=== PATIENT | female | born 1970 | race Caucasian/White ===

== ENCOUNTER 2016-10-29 13:41 | Outpatient (CLI) | payer OTHER ==
[2016-10-29] MEDS ORDERED: GADOBUTROL 7.5 MMOL/7.5 ML VIAL IVP ONE (14:48)
--- NOTE | 2016-10-30 15:22 | MRI Report ---
EXAM: MR PELVIS WITH AND WITHOUT CONTRAST EXAM DATE: 10/29/2016 03:07 PM. CLINICAL HISTORY: ADBNORMAL UTERINE AND VAGINAL BLEEDING. History of tubal ligation COMPARISON: None. TECHNIQUE: Multiplanar breath-hold T1, T2, and DWI sequences obtained through the pelvis on an MR [facility] nner. Images obtained before and after administration of 7.5 mL Gadavist intravenous contrast. FINDINGS: Peritoneal cavity: Trace free fluid in the cul-de-sac. No adenopathy. No inflammatory change or mass. Bowel: The visualized portions of the small bowel, colon, and rectum appear normal. Bladder: The urinary bladder appears normal. Uterus: Retroverted and normal in size measuring 7.4 x 3 point to buy 4 cm. Normal morphology. No dev elopmental variant. Thickening of junctional zone is seen circumferentially with a few small cystic spaces within junctio nal zone. Junctional zone thickness in several areas measures greater than 8 mm. Endometrial stripe t hickness is normal measuring less than 6 mm at its widest point. Average thickness is approximately 5 mm. No focal mass. Subtle rounded areas of low T2 signal are seen separate from junctional zone in more peripheral myome trium consistent with small fibroids. 2 fibroids are seen measuring approximately 1.3 cm in diameter on the right, image 19 of series 801 and anterior 11 mm in diameter on image 20. Cervix/vagina: Small nabothian cysts. Otherwise unremarkable. Ovaries: Small/normal in size containing subcentimeter follicles. No adnexal mass suspicious for neop lasm. Bony Structures: No suspicious bony lesions. IMPRESSION: 1. Mild diffuse prominence of junctional zone containing small cystic spaces. Portions of junctional zone measure greater than 8 mm in thickness. Adenomyosis is a consideration for these findings in a p remenopausal patient with heavy vaginal bleeding. 2. Small intramural fibroids are seen. No submucosal fibroid. Overall uterine size is normal. 3. Endometrial stripe thickness is within normal limits for a premenopausal patient. No finding suspi cious for endometrial neoplasm/malignancy or polyp. 4. Examination otherwise as detailed above. [facility] Referring Provider Line: [phone] SITE ID: [id number]
== END 2016-10-29 13:42 | disposition home or self-care (01) ==
LOC: DI 13:41
PROVIDERS: ATTEND Nurse Practitioner Family
DX: D25.1 Intramural leiomyoma of uterus (principal)
CPT/HCPCS: 72197; A9585

== ENCOUNTER 2018-05-03 06:29 | Emergency (ER) | payer OTHER ==
[2018-05-03 06:46] LABS: BILIRUBIN,URINE NEGATIVE (NEGATIVE); GLUCOSE, URINE (UA) NEGATIVE (NEGATIVE); KETONES,URINE (UA) NEGATIVE (NEGATIVE); LEUKOCYTE ESTERASE, URINE NEGATIVE (NEGATIVE); NITRITE,URINE NEGATIVE (NEGATIVE); OCCULT BLOOD,URINE NEGATIVE (NEGATIVE); PROTEIN,URINE NEGATIVE (NEGATIVE); UROBILINOGEN,URINE 0.2 (NORMAL) E.U./dL (NORMAL)
[2018-05-03 06:48] LABS: CLARITY,URINE CLEAR (CLEAR)
[2018-05-03] MEDS ORDERED: KETOROLAC 30 MG/ML VIAL IVP STA (07:40)
[2018-05-03] MEDS ORDERED: SODIUM CHLORIDE 0.9% 1,000 ML IV ONE (07:40)
--- NOTE | 2018-05-03 07:43 | ED Physician Documentation ---
History of Present Illness - Stated complaint Stated Complaint: ABD/LOW BACK PX - Chief complaint Chief Complaint: Back Pain - Additonal information Additional information: hx from pt 47 y/o f suffers from chronic pain and is fairly immobile due to this to ED today with abd pain and mid to lower back pain R ? L pain radiates to hips but not down legs tingling to hips but no numbness or weakness no dysuria hematuria incontinence or retention no loss of bowel control or bloody stools no saddle anesthesia no fever no recent surgery or dental work, no IV IM meds or drugs Review of Systems Constitutional: denies: Fever, Chills Cardiac: denies: Chest pain / pressure Respiratory: denies: Dyspnea, Cough GI: reports: Abdominal Pain. denies: Nausea, Vomiting, Diarrhea, Bloody / black stool : reports: Control (tubal). 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 - Present Medications Home Medications: Ambulatory Orders Medication Instructions Recorded Confirmed Sertraline HCl [Zoloft] 75 mg PO DAILY 12/30/13 04/26/15 Azithromycin [Zithromax] 500 mg PO DAILY #6 tablet 05/03/18 Dicyclomine [Bentyl] 10 mg PO Q8H PRN #20 capsule 05/03/18 - Allergies Allergies/Adverse Reactions: Allergies Allergy/AdvReac Type Severity Reaction Status Date / Time gluten Allergy Unknown Unknown Verified 05/03/18 06:41 - Social History Does the pt smoke?: No Smoking Status: Never smoker Does the pt drink ETOH?: Yes Does the pt have substance abuse?: No Substance Use and Type: Marijuana - Immunizations Immunizations are current?: Yes - POLST Patient has POLST: No PD ED PE NORMAL - Vitals Vital signs reviewed: Yes - General General: Alert and oriented X 3 - Neck Neck: Supple, no meningeal sign - Cardiac Cardiac: RRR - Respiratory Respiratory: No respiratory distress, Clear bilaterally - Abdomen Abdomen: Other (+ BS soft mild distension diffusely TTP, kaya scar, no hernia) - Back Back: No spinal TTP (and no focal redness swelling or warmth) - Derm Derm: Normal color - Neuro Neuro: Alert and oriented X 3, No motor deficit, No sensory deficit, Other (hip flexion, knee ext, foot dorsi plantar grat toe ext 5/5, patellar DTR 2/4, no clonus, neg SLR, nl sensation, denies saddle anesthesia) Eye Opening: Spontaneous Motor: Obeys Commands Verbal: Oriented GCS Score: 15 Results - Vitals Vitals: Vital Signs - 24 hr 05/03/18 05/03/18 06:32 10:03 Temperature 36.3 C L 36.4 C L Heart Rate 79 71 Respiratory 17 18 Rate Blood Pressure 124/81 H 120/80 O2 Saturation 100 99 Oxygen O2 Source Room air - Labs Labs: Laboratory Tests 05/03/18 05/03/18 05/03/18 06:35 06:35 07:45 WBC 8.3 RBC 4.49 Hgb 11.8 L Hct 35.7 L MCV 79.5 L MCH 26.2 L MCHC 33.0 RDW 17.9 H Plt Count 237 MPV 7.2 L Neut # (Auto) 5.0 Lymph # (Auto) 2.1 [place] # (Auto) 0.5 Eos # (Auto) 0.5 Baso # (Auto) 0.1 Absolute Nucleated RBC 0.00 Nucleated RBC % 0.0 Sodium Potassium Chloride Carbon Dioxide Anion Gap BUN Creatinine Estimated GFR (MDRD) Glucose Calcium Total Bilirubin AST ALT Alkaline Phosphatase Total Protein Albumin Globulin Albumin/Globulin Ratio Lipase Urine Color YELLOW Urine Clarity CLEAR Urine pH 6.0 Ur Specific [place] <=1.005 <=1.005 Urine Protein NEGATIVE Urine Glucose (UA) NEGATIVE Urine Ketones NEGATIVE Urine Occult Blood NEGATIVE Urine Nitrite NEGATIVE Urine Bilirubin NEGATIVE Urine Urobilinogen 0.2 (NORMAL) Ur Leukocyte Esterase NEGATIVE Ur Microscopic Review NOT INDICATED Urine Culture Comments NOT INDICATED Urine HCG, Qual NEGATIVE 05/03/18 07:45 WBC RBC Hgb Hct MCV MCH MCHC RDW Plt Count MPV Neut # (Auto) Lymph # (Auto) [place] # (Auto) Eos # (Auto) Baso # (Auto) Absolute Nucleated RBC Nucleated RBC % Sodium 139 Potassium 3.8 Chloride 107 Carbon Dioxide 24 Anion Gap 8.0 BUN 11 Creatinine 0.6 Estimated GFR (MDRD) 106 Glucose 93 Calcium 8.9 Total Bilirubin 0.3 AST 24 ALT 22 Alkaline Phosphatase 89 Total Protein 8.2 Albumin 3.6 Globulin 4.6 H Albumin/Globulin Ratio 0.8 L Lipase 35 Urine Color Urine Clarity Urine pH Ur Specific [place] Urine Protein Urine Glucose (UA) Urine Ketones Urine Occult Blood Urine Nitrite Urine Bilirubin Urine Urobilinogen Ur Leukocyte Esterase Ur Microscopic Review Urine Culture Comments Urine HCG, Qual - Rads (name of study) CTAP Radiology: See rad report (per verbal d/w radiologist Dr Browning most c/w ileitis and not appendicitis, no renal abn) Departure - Departure Disposition: Home, Self Care Clinical Impression: Ileitis Condition: Good Follow-Up: MALOU MENSAH [Primary Care Provider] - Prescriptions: Azithromycin [Zithromax] 500 mg PO DAILY #6 tablet Dicyclomine [Bentyl] 10 mg PO Q8H PRN #20 capsule PRN Reason: Stomach cramps Comments: The blood work is all fine except mild anemia The urine did not show infection nor blood to suggest a kidney stone. The CT scan did not show a kidney stone or abscess or appendicitis or any spine problems - but it does look like you have inflammation (probably infection) of the part of bowel called the ileum. So I have prescribed antibiotics and a medication called bentyl to ease the pain. Please follow up with your PMD for a recheck Monday. If not improving you may need a GI referral. If worse over the weekend, come back to the ER Forms: Activity restrictions
[2018-05-03] MEDS ORDERED: IOVERSOL 320 100 ML VIAL IVP ONE ×2 (07:47→09:50)
[2018-05-03 08:00] LABS: BASOPHILS # (AUTO) 0.1 10^3/uL (0.0-0.1); BASOPHILS % (AUTO) 1.3 %; EOSINOPHILS # (AUTO) 0.5 10^3/uL (0.0-0.7); EOSINOPHILS % (AUTO) 6.5 %; HGB - HEMOGLOBIN 11.8 g/dL (12.0-16.0); LYMPHOCYTES # (AUTO) 2.1 10^3/uL (1.5-3.5); LYMPHOCYTES % (AUTO) 25.1 %; MEAN CORPUSCULAR HEMOGLOBIN 26.2 pg (27.0-31.0); MEAN CORPUSCULAR VOLUME 79.5 fL (81.0-99.0); MEAN PLATELET VOLUME 7.2 fL (7.9-10.8); MONOCYTES # (AUTO) 0.5 10^3/uL (0.0-1.0); MONOCYTES % (AUTO) 6.4 %; NEUTROPHILS % (AUTO) 60.7 %; PLT - PLATELET COUNT 237 10^3/uL (130-450); RED BLOOD COUNT 4.49 10^6/uL (4.20-5.40); RED CELL DISTRIBUTION WIDTH 17.9 % (12.0-15.0); WHITE BLOOD COUNT 8.3 x10^3/uL (4.8-10.8)
[2018-05-03 08:18] LABS: ALBUMIN 3.6 g/dL (3.2-5.5); ALBUMIN/GLOBULIN RATIO 0.8 (1.0-2.2); BILIRUBIN,TOTAL 0.3 mg/dL (0.2-1.0); CALCIUM 8.9 mg/dL (8.5-10.3); CREATININE 0.6 mg/dL (0.4-1.0); TOTAL PROTEIN 8.2 g/dL (6.7-8.2)
[2018-05-03 09:05] LABS: HCG UR QUAL NEGATIVE
--- NOTE | 2018-05-03 09:37 | CT Report ---
Reason: abd pain/distension and R flank pain Procedure Date: 05/03/2018 Accession Number: [id number] / [id number] Procedure: CT - Abdomen/Pelvis W/ CPT Code: FULL RESULT: EXAM: CT ABDOMEN AND PELVIS EXAM DATE: 05/03/2018 09:21 AM. CLINICAL HISTORY: Abdominal pain/distension and right flank pain. COMPARISONS: ABDOMEN/PELVIS W/ 04/26/2015 3:51 PM. TECHNIQUE: Routine helical CT imaging was performed through the abdomen and pelvis. IV contrast: OPTI 320 90 mL. Enteric contrast: No. Reconstructions: Coronal and sagittal. In accordance with CT protocol optimization, one or more of the following dose reduction techniques were utilized for this exam: automated exposure control, adjustment of mA and/or KV based on patient size, or use of iterative reconstructive technique. FINDINGS: Lung Bases: Unremarkable. Liver: Normal. No masses. Gallbladder/Bile Ducts: Status post cholecystectomy. Spleen: Normal. Pancreas: Normal. Adrenal Glands: Normal. Kidneys: Normal. No masses or hydronephrosis. Peritoneal Cavity/Bowel: There is subtle fat stranding in the region of the terminal ileum which contains a small amount of fluid and demonstrates a configuration questionably suggestive of postinflammatory changes without identifiable fatty infiltration of the bowel wall. No free fluid, free air or adenopathy. No masses visualized portions of the appendix are normal though portions of the appendix associated with the terminal ileum demonstrate similar mild surrounding inflammatory changes. Pelvic Organs: Normal. The bladder and visualized pelvic organs are within normal limits. Vasculature: No aneurysms or other significant abnormality. Bones: No significant abnormality. Other: None. IMPRESSION: Mild inflammatory changes in the terminal ileum. Question terminal ileitis. Appendicitis is felt less likely but cannot be excluded by imaging alone. No renal calculi or urinary obstruction. [facility]
[2018-05-03 10:03] VITALS: BP 120/80
== END 2018-05-03 10:33 | disposition home or self-care (01) ==
LOC: ED 06:29
DX: K52.9 Noninfective gastroenteritis and colitis, unspecified (principal); G89.29 Other chronic pain
CPT/HCPCS: 36415; 74177; 80053; 81003; 81025; 83690; 85025; 96361; 96374; 99283; Q9967; 81001; 87086

== ENCOUNTER 2018-06-17 12:40 | Emergency (ER) | payer OTHER ==
[2018-06-17 13:32] LABS: BILIRUBIN,URINE NEGATIVE (NEGATIVE); GLUCOSE, URINE (UA) NEGATIVE (NEGATIVE); KETONES,URINE (UA) NEGATIVE (NEGATIVE); LEUKOCYTE ESTERASE, URINE NEGATIVE (NEGATIVE); NITRITE,URINE NEGATIVE (NEGATIVE); OCCULT BLOOD,URINE NEGATIVE (NEGATIVE); PH,URINE 5.5 PH (5.0-7.5); PROTEIN,URINE NEGATIVE (NEGATIVE); UROBILINOGEN,URINE 0.2 (NORMAL) E.U./dL (NORMAL)
[2018-06-17 13:34] LABS: CLARITY,URINE CLEAR (CLEAR); HCG UR QUAL NEGATIVE
--- NOTE | 2018-06-17 14:08 | ED Physician Documentation ---
PD HPI ABD PAIN - Stated complaint Stated Complaint: STOMACH AND HIP PAIN - Chief complaint Chief Complaint: Abd Pain - History obtained from History obtained from: Patient, Family - History of Present Illness Timing - onset: Yesterday Timing - duration: Days (1) Timing - details: Gradual onset, Still present Quality: Sharp, Pain Location: RLQ, Suprapubic Improved by: Laying still Worsened by: Moving, Position, Palpation Associated symptoms: Nausea. No: Diarrhea, Constipation, Dysuria Similar symptoms before: Has not had sx before Recently seen: Not recently seen - Additional information Additional information: 48-year-old male began to have some pain in her lower abdomen yesterday afternoon and this progressively worsened throughout the day and by evening she had fairly severe pain. She required medication to go to sleep and she woke this morning with worse pain. The pain seems to have localized more to the right side but is present over the entire lower abdomen. She has had her gallbladder out and she has had a prior diagnosis of ileitis approximately 5 weeks ago Review of Systems Constitutional: denies: Fever Eyes: denies: Decreased vision Ears: denies: Loss of hearing, Ear pain Nose: denies: Rhinorrhea / runny nose, Congestion Throat: denies: Sore throat Cardiac: denies: Chest pain / pressure, Palpitations Respiratory: denies: Dyspnea, Cough GI: reports: Abdominal Pain, Nausea. 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 - Present Medications Home Medications: Ambulatory Orders Medication Instructions Recorded Confirmed Sertraline HCl [Zoloft] 75 mg PO DAILY 12/30/13 06/17/18 - Allergies Allergies/Adverse Reactions: Allergies Allergy/AdvReac Type Severity Reaction Status Date / Time gluten Allergy Unknown Unknown Verified 06/17/18 12:47 - Social History Does the pt smoke?: No Smoking Status: Never smoker Does the pt drink ETOH?: Yes Does the pt have substance abuse?: No - Immunizations Immunizations are current?: Yes - POLST Patient has POLST: No PD ED PE NORMAL - Vitals Vital signs reviewed: Yes (normal ) - General General: Alert and oriented X 3, No acute distress, Well developed/nourished - HEENT HEENT: Atraumatic, PERRL, EOMI - Neck Neck: Supple, no meningeal sign - Cardiac Cardiac: RRR, No murmur - Respiratory Respiratory: No respiratory distress, Clear bilaterally - Abdomen Abdomen: Soft, Other (marked lower abdomen tenderness that locallizes to the right lower quadrant. There is guarding and referred tenderness. ) - Back Back: No CVA TTP, No spinal TTP - Derm Derm: Normal color, Warm and dry, No rash - Neuro Neuro: Alert and oriented X 3, assignment editor 2-12 intact, No motor deficit, No sensory deficit, Normal speech Eye Opening: Spontaneous Motor: Obeys Commands Verbal: Oriented GCS Score: 15 - Psych Psych: Normal mood, Normal affect Results - Vitals Vitals: Vital Signs - 24 hr 06/17/18 06/17/18 06/17/18 12:45 14:25 16:00 Temperature 37.0 C Heart Rate 88 72 77 Respiratory 17 12 14 Rate Blood Pressure 120/79 100/67 102/65 O2 Saturation 99 96 94 Oxygen O2 Source Room air - Labs Labs: Laboratory Tests 06/17/18 06/17/18 06/17/18 13:00 13:20 13:20 WBC 9.7 RBC 4.73 Hgb 12.5 Hct 38.2 MCV 80.7 L MCH 26.5 L MCHC 32.9 RDW 17.3 H Plt Count 249 MPV 7.5 L Neut # (Auto) 6.1 Lymph # (Auto) 2.2 [place] # (Auto) 0.5 Eos # (Auto) 0.8 H Baso # (Auto) 0.1 Absolute Nucleated RBC 0.00 Nucleated RBC % 0.0 Sodium 139 Potassium 3.4 L Chloride 102 Carbon Dioxide 23 Anion Gap 14.0 H BUN 12 Creatinine 0.7 Estimated GFR (MDRD) 89 Glucose 93 Calcium 8.8 Total Bilirubin 0.5 AST 25 ALT 17 Alkaline Phosphatase 82 Total Protein 8.4 H Albumin 3.7 Globulin 4.7 H Albumin/Globulin Ratio 0.8 L Lipase 33 Urine Color YELLOW Urine Clarity CLEAR Urine pH 5.5 Ur Specific Gap 1.010 Urine Protein NEGATIVE Urine Glucose (UA) NEGATIVE Urine Ketones NEGATIVE Urine Occult Blood NEGATIVE Urine Nitrite NEGATIVE Urine Bilirubin NEGATIVE Urine Urobilinogen 0.2 (NORMAL) Ur Leukocyte Esterase NEGATIVE Ur Microscopic Review NOT INDICATED Urine Culture Comments NOT INDICATED Urine HCG, Qual NEGATIVE - Rads (name of study) CT abd/pel with Radiology: Prelim report reviewed (Impression 1. No acute inflammatory or obstructive process is identified to explain abdominal pain. 2 Large stool volume throughout the colon, which could be a cause of pain.), EMP read indepedently, See rad report PD MEDICAL DECISION MAKING - ED course Complexity details: reviewed old records, reviewed results, re-evaluated patient, considered differential, d/w patient, d/w family Departure - Departure Disposition: 01 Home, Self Care Clinical Impression: Constipation Qualifiers: Constipation type: unspecified constipation type Qualified Code(s): K59.00 - Constipation, unspecified Condition: Stable Instructions: ED Constipation Follow-Up: MALOU MENSAH [Primary Care Provider] -
[2018-06-17 14:11] LABS: BASOPHILS # (AUTO) 0.1 10^3/uL (0.0-0.1); BASOPHILS % (AUTO) 0.9 %; EOSINOPHILS # (AUTO) 0.8 10^3/uL (0.0-0.7); EOSINOPHILS % (AUTO) 8.3 %; HGB - HEMOGLOBIN 12.5 g/dL (12.0-16.0); LYMPHOCYTES # (AUTO) 2.2 10^3/uL (1.5-3.5); MEAN CORPUSCULAR HEMOGLOBIN 26.5 pg (27.0-31.0); MEAN CORPUSCULAR HGB CONC 32.9 g/dL (32.0-36.0); MEAN CORPUSCULAR VOLUME 80.7 fL (81.0-99.0); MEAN PLATELET VOLUME 7.5 fL (7.9-10.8); MONOCYTES # (AUTO) 0.5 10^3/uL (0.0-1.0); MONOCYTES % (AUTO) 4.9 %; NEUTROPHILS # (AUTO) 6.1 10^3/uL (1.5-6.6); NEUTROPHILS % (AUTO) 62.9 %; PLT - PLATELET COUNT 249 10^3/uL (130-450); RED BLOOD COUNT 4.73 10^6/uL (4.20-5.40); RED CELL DISTRIBUTION WIDTH 17.3 % (12.0-15.0); WHITE BLOOD COUNT 9.7 x10^3/uL (4.8-10.8)
[2018-06-17 14:22] LABS: ALBUMIN 3.7 g/dL (3.2-5.5); ALBUMIN/GLOBULIN RATIO 0.8 (1.0-2.2); BILIRUBIN,TOTAL 0.5 mg/dL (0.2-1.0); CALCIUM 8.8 mg/dL (8.5-10.3); CREATININE 0.7 mg/dL (0.4-1.0); TOTAL PROTEIN 8.4 g/dL (6.7-8.2)
[2018-06-17] MEDS ORDERED: IOVERSOL 320 100 ML VIAL IVP ONE ×2 (14:46→14:56)
[2018-06-17] MEDS ORDERED: KETOROLAC 30 MG/ML VIAL IVP STA (15:34)
--- NOTE | 2018-06-17 15:45 | CT Report ---
Reason: abd pain worse on RLQ Procedure Date: 06/17/2018 Accession Number: [id number] / [id number] Procedure: CT - Abdomen/Pelvis W CPT Code: FULL RESULT: EXAM: CT ABDOMEN AND PELVIS EXAM DATE: 06/17/2018 02:54 PM. CLINICAL HISTORY: Abdominal pain, worst in right lower quadrant COMPARISONS: ABDOMEN/PELVIS W/ 05/03/2018 9:05 AM. TECHNIQUE: Routine helical CT imaging was performed through the abdomen and pelvis. IV contrast: 100 mL Optiray 320. Enteric contrast: None. Reconstructions: Coronal and sagittal. In accordance with CT protocol optimization, one or more of the following dose reduction techniques were utilized for this exam: automated exposure control, adjustment of mA and/or KV based on patient size, or use of iterative reconstructive technique. FINDINGS: Lung Bases: Clear. Liver: Normal. No focal hepatic lesion. Gallbladder/Bile Ducts: Post cholecystectomy. No biliary ductal dilatation. Spleen: Normal. Pancreas: Normal. Adrenal Glands: Normal. Kidneys and Ureters: Normal. No stones, hydronephrosis, or hydroureter. Peritoneal Cavity/Bowel: Small volume intrapelvic free fluid, likely physiologic if the patient is premenopausal. Large stool volume throughout the colon. No evidence for bowel obstruction or acute inflammatory process. The appendix is normal. No pneumoperitoneum or adenopathy. Pelvic Organs: The bladder, uterus, and ovaries are within normal limits. Vasculature: Unremarkable. Bones: Minimal right convex curvature centered at L2-L3. Mild degenerative changes within the spine. No acute bony abnormality. Other: None. IMPRESSION: 1. No acute inflammatory or obstructive process identified to explain abdominal pain. 2. Large stool volume throughout the colon, which could be a cause of pain. [facility]
[2018-06-17 18:13] VITALS: BP 118/81
== END 2018-06-17 18:15 | disposition home or self-care (01) ==
LOC: ED 12:40
DX: K59.00 Constipation, unspecified (principal)
CPT/HCPCS: 36415; 74177; 80053; 81003; 81025; 83690; 85025; 99282; 99284; Q9967; 81001; 87086

== ENCOUNTER 2018-10-16 16:55 | Observation (INO) | payer OTHER ==
[2018-10-16 17:36] LABS: BASOPHILS # (AUTO) 0.1 10^3/uL (0.0-0.1); BASOPHILS % (AUTO) 0.7 %; EOSINOPHILS # (AUTO) 0.9 10^3/uL (0.0-0.7); EOSINOPHILS % (AUTO) 7.3 %; HGB - HEMOGLOBIN 12.9 g/dL (12.0-16.0); LYMPHOCYTES # (AUTO) 2.5 10^3/uL (1.5-3.5); MEAN CORPUSCULAR HEMOGLOBIN 26.5 pg (27.0-31.0); MEAN CORPUSCULAR HGB CONC 30.4 g/dL (32.0-36.0); MEAN CORPUSCULAR VOLUME 87.3 fL (81.0-99.0); MEAN PLATELET VOLUME 9.2 fL (7.9-10.8); MONOCYTES # (AUTO) 0.7 10^3/uL (0.0-1.0); MONOCYTES % (AUTO) 5.8 %; NEUTROPHILS % (AUTO) 65.4 %; PLT - PLATELET COUNT 268 10^3/uL (130-450); RED BLOOD COUNT 4.87 10^6/uL (4.20-5.40); RED CELL DISTRIBUTION WIDTH 15.9 % (12.0-15.0); WHITE BLOOD COUNT 12.3 x10^3/uL (4.8-10.8)
[2018-10-16 17:52] LABS: ALBUMIN 4.2 g/dL (3.2-5.5); ALBUMIN/GLOBULIN RATIO 0.9 (1.0-2.2); BILIRUBIN,TOTAL 0.6 mg/dL (0.2-1.0); CALCIUM 9.4 mg/dL (8.5-10.3); CREATININE 0.9 mg/dL (0.4-1.0); TOTAL PROTEIN 9.1 g/dL (6.7-8.2)
--- NOTE | 2018-10-16 18:10 | ED Physician Documentation ---
PD HPI HEENT - Stated complaint Stated Complaint: DIZZY - Chief complaint Chief Complaint: Neuro - History obtained from History obtained from: Patient - History of Present Illness Timing - onset: Today (10 am) Timing - duration: Hours Timing - details: Abrupt onset, Still present Location: Other (onset of vertigo, trouble speaking, and feeling off balance, abruptly while standing in kitchen talking with friend.) Worsens: Position Associated symptoms: Other (ongoing dental pains; no acute swelling/drainage.). No: Fever, Congestion, Facial swelling, Headache Similar symptoms before: Has not had sx before Recently seen: Not recently seen Review of Systems Constitutional: denies: Fever, Chills Eyes: reports: Decreased vision (blurred vision left eye) Nose: denies: Rhinorrhea / runny nose, Congestion Throat: reports: Dental pain / toothache. denies: Sore throat Respiratory: denies: Cough GI: denies: Abdominal Pain, Nausea, Vomiting, Diarrhea Skin: denies: Rash, Lesions Neurologic: reports: Generalized weakness. 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 Living Arrangement: reports: At home - Social History Does the pt smoke?: No Smoking Status: Never smoker Does the pt drink ETOH?: Yes Does the pt have substance abuse?: No - Family History Family history: reports: Non contributory - Immunizations Immunizations are current?: Yes - POLST Patient has POLST: No PD ED PE NORMAL - Vitals Vital signs reviewed: Yes - General General: Alert and oriented X 3, No acute distress, Well developed/nourished - HEENT HEENT: Atraumatic, PERRL, EOMI, Pharynx benign. No: Dentition benign (poor dentition and some left upper dental tenderness but no gum swelling nor fluctuance. ) - Neck Neck: Supple, no meningeal sign, No adenopathy, No bruit - Cardiac Cardiac: RRR, No murmur - Respiratory Respiratory: Clear bilaterally - Abdomen Abdomen: Soft, Non tender - Back Back: No CVA TTP - Derm Derm: Normal color, Warm and dry - Extremities Extremities: No deformity, No tenderness to palpate - Neuro Neuro: Alert and oriented X 3, nuclear medicine chief technologist 2-12 intact, No motor deficit, No sensory deficit. No: Normal speech (some slight hesitancy for speech/sentences. No slurring. ) Results - Vitals Vitals: Vital Signs - 24 hr 10/16/18 10/16/18 10/16/18 16:58 19:09 20:15 Temperature 36.9 C Heart Rate 96 79 77 Respiratory 20 15 21 Rate Blood Pressure 127/88 H 122/80 109/69 O2 Saturation 97 99 96 Oxygen O2 Source Room air - Labs Labs: Laboratory Tests 10/16/18 10/16/18 10/16/18 17:31 17:31 17:31 WBC 12.3 H RBC 4.87 Hgb 12.9 Hct 42.5 MCV 87.3 MCH 26.5 L MCHC 30.4 L RDW 15.9 H Plt Count 268 MPV 9.2 Neut # (Auto) 8.0 H Lymph # (Auto) 2.5 [place] # (Auto) 0.7 Eos # (Auto) 0.9 H Baso # (Auto) 0.1 Absolute Nucleated RBC 0.00 Nucleated RBC % 0.0 ESR Sodium 138 Potassium 3.6 Chloride 101 Carbon Dioxide 24 Anion Gap 13.0 BUN 12 Creatinine 0.9 Estimated GFR (MDRD) 66 L Glucose 98 Calcium 9.4 Magnesium Total Bilirubin 0.6 AST 24 ALT 24 Alkaline Phosphatase 90 Troponin I < 0.04 Total Protein 9.1 H Albumin 4.2 Globulin 4.9 H Albumin/Globulin Ratio 0.9 L Lipase 31 10/16/18 10/16/18 17:31 17:31 WBC RBC Hgb Hct MCV MCH MCHC RDW Plt Count MPV Neut # (Auto) Lymph # (Auto) [place] # (Auto) Eos # (Auto) Baso # (Auto) Absolute Nucleated RBC Nucleated RBC % ESR 13 Sodium Potassium Chloride Carbon Dioxide Anion Gap BUN Creatinine Estimated GFR (MDRD) Glucose Calcium Magnesium 2.3 Total Bilirubin AST ALT Alkaline Phosphatase Troponin I Total Protein Albumin Globulin Albumin/Globulin Ratio Lipase - Rads (name of study) head CT Radiology: Prelim report reviewed, Discussed with rads (no acute process), See rad report head and neck angio Radiology: Prelim report reviewed, Discussed with rads (no acute significant stenoses. ), See rad report PD MEDICAL DECISION MAKING - ED course Complexity details: reviewed results (CT and CT-A without acute changes. ), considered differential (Her symptoms are concerning for potential posterior circulation and infarct with the left visual change, vertigo and ataxia. Also with the trouble speaking. The CT and CTA did not show any acute process. However these would not be completely definitive for a posterior circulation infarct and the MRI would be indicated. This would also help show other potential possibilities such as cavernous sinus thrombosis or MS. She had been having a dental tenderness but no obvious abscess or infection to it. She has not had any injuries so it does not sound concussive. The vertigo could be from inner ear problem but that would not explain the difficulty speaking or the visual change.), d/w patient Departure - Departure Disposition: ED Place in Observation Clinical Impression: Ataxia, Vertigo, Vision changes Condition: Stable Record reviewed to determine appropriate education?: Yes Discharge Date/Time: 10/16/18 21:28 NIHSS - Level of Consciousness Level of consciousness: (0) Alert, Keenly responsive LOC Questions: (0) Answers both Q's correct LOC Commands: (0) Performs both correctly - Gaze Best Gaze: (0) Normal - Visual Visual: (2) Complete Hemianopia (left lateral visual field) - Facial Palsy Facial Palsy: (0) Normal, symmetrical movement - Motor Arms (both separate) Motor Arm (right): (0) No drift Motor Arm (left): (0) No drift - Motor Legs (both separate) Motor Leg (right): (0) No drift Motor Leg (left): (0) No drift - Limb Ataxia Limb Ataxia: (1) Present in 1 limb - Sensory Sensory: (0) Normal - Best Language Best Language: (1) [id number] (some mild trouble with word search and hesitant sentence structure) - Dysarthria Dysarthria: (0) Normal - Extinction and Inattention (formally neg Extinction and inattention: (0) No abnormality - Total Score/Results Total Score/Result: 4
[2018-10-16] MEDS ORDERED: SODIUM CHLORIDE 0.9% 1,000 ML IV ONE (18:36)
[2018-10-16] MEDS ORDERED: MECLIZINE 12.5 MG TABLET PO STA (18:36)
[2018-10-16] MEDS ORDERED: ONDANSETRON 4 MG/2 ML VIAL IVP STA (18:36)
[2018-10-16] MEDS ORDERED: IOVERSOL 320 100 ML VIAL IVP ONE ×3 (18:48→20:58)
[2018-10-16] MEDS ORDERED: KETOROLAC 15 MG/ML VIAL IVP STA (19:13)
--- NOTE | 2018-10-16 19:23 | CT Report ---
Reason: ataxia, left visual change, vertigo Procedure Date: 10/16/2018 Accession Number: [id number] / [id number] Procedure: CT - Head W/O Stroke Protocol CPT Code: FULL RESULT: EXAM: CT HEAD EXAM DATE: 10/16/2018 07:13 PM. CLINICAL HISTORY: 48-year-old presenting with ataxia, vertigo, and left visual changes. Evaluate for intracranial pathology. COMPARISON: HEAD ANGIO 10/16/2018 7:01 PM. TECHNIQUE: Multiaxial CT images were obtained from the foramen magnum to the vertex. Reformats: Sagittal and coronal. IV contrast: None. In accordance with CT protocol optimization, one or more of the following dose reduction techniques were utilized for this exam: automated exposure control, adjustment of mA and/or KV based on patient size, or use of iterative reconstructive technique. FINDINGS: Parenchyma: No intraparenchymal hemorrhage. No evidence of mass, midline shift, or CT findings of acute infarction. Patricia-white differentiation is distinct. Extraaxial Spaces: Normal for age. No subdural or epidural collections identified. Ventricles: Normal in size and position. Sinuses and Orbits: Imaged paranasal sinuses, orbits, and mastoids show no significant abnormality. Bones: No evidence of fracture or calvarial defect. Other: None. IMPRESSION: 1. No definite acute infarct seen. If there is clinical concern for acute stroke or if symptoms persist, an MR brain can be considered to evaluate for small or subtle pathology. ASPECTS: 10 right/10 left 2. No acute intracranial hemorrhage, mass, hydrocephalus or midline shift. RADIA The critical test notification system was initiated by Dr. Mukesh Rodriguez at 07:22 PM on 10/16/2018. The above critical test findings were discussed with Timmy Sampson by Dr. Mukesh Rodriguez at 07:23 PM on 10/16/2018.
--- NOTE | 2018-10-16 20:01 | CT Report ---
Reason: visual change, dizzy, ataxia Procedure Date: 10/16/2018 Accession Number: [id number] / [id number] Procedure: CT - ANGIO HEAD W CPT Code: FULL RESULT: EXAM: CT ANGIOGRAM HEAD AND NECK. CT SCAN HEAD WITH CONTRAST. EXAM DATE: 10/16/2018 07:13 PM. CLINICAL HISTORY: 48-year-old presenting with dizziness, left visual changes, and ataxia. Evaluate for intracranial pathology. COMPARISON: HEAD ANGIO 10/16/2018 7:01 PM. TECHNIQUE: Routine axial helical CTA imaging was performed from the aortic arch through the [place]. Routine axial CT imaging of the head was performed following contrast administration. Reconstructions: Routine multiplanar 3D MIP reconstructions. IV contrast: 100 cc Optiray 320. NASCET Criteria are used for stenosis measurements. In accordance with CT protocol optimization, one or more of the following dose reduction techniques were utilized for this exam: automated exposure control, adjustment of mA and/or KV based on patient size, or use of iterative reconstructive technique. FINDINGS: CT SCAN HEAD: Parenchyma: No intraparenchymal hemorrhage. No evidence of mass, midline shift, or CT findings of acute infarction. Patricia-white differentiation is distinct. No abnormal postcontrast enhancement. Extra-axial Spaces: Normal for age. No subdural or epidural collections identified. Ventricles: Normal in size and position. Sinuses and Orbits: Imaged paranasal sinuses, orbits, and mastoids show no significant abnormality. Bones: No evidence of fracture or calvarial defect. CT ANGIOGRAM EXTRACRANIAL CIRCULATION: The visualized arch is unremarkable. Great vessels are patent and unremarkable. Right Carotid: The common carotid, internal carotid, and external carotid arteries are widely patent. No dissection, significant atherosclerotic plaque, or calcification identified. Left Carotid: The common carotid, internal carotid, and external carotid arteries are widely patent. No dissection, significant atherosclerotic plaque, or calcification identified. Vertebrals: The vertebrobasilar system shows no stenosis, dissection, aneurysm, or significant atherosclerotic disease. CT ANGIOGRAM INTRACRANIAL CIRCULATION: Normal. No stenoses or aneurysms of the visualized vessels. The dural venous sinuses are patent. Other: The visualized bones, soft tissues, and lung apices are unremarkable. IMPRESSION: CT SCAN HEAD: 1. No definite acute infarct seen. If there is clinical concern for acute stroke or symptoms persist an MR brain could be considered to evaluate for small or subtle pathology. ASPECTS: 10 right/10 left. 2. No acute intracranial hemorrhage, mass, hydrocephalus, or midline shift. No abnormal postcontrast enhancement. CT ANGIOGRAM NECK: 1. Normal CTA of the extracranial circulation. No significant atherosclerotic change or stenosis. No dissection. CT ANGIOGRAM HEAD: 1. No large vessel occlusion. 2. No aneurysm. No significant stenosis. RADIA The call report notification system was initiated by Dr. Mukesh Rodriguez at 08:00 PM on 10/16/2018. ADDENDUM: 10/16/18 20:19 The above call report findings were discussed with Timmy Sampson by Dr. Mukesh Rodriguez at 08:19 PM on 10/16/2018.
--- NOTE | 2018-10-16 20:01 | CT Report ---
Reason: dizzy, left visual change, ataxia Procedure Date: 10/16/2018 Accession Number: [id number] / [id number] Procedure: CT - ANGIO NECK W/WO CPT Code: FULL RESULT: EXAM: CT ANGIOGRAM HEAD AND NECK. CT SCAN HEAD WITH CONTRAST. EXAM DATE: 10/16/2018 07:13 PM. CLINICAL HISTORY: 48-year-old presenting with dizziness, left visual changes, and ataxia. Evaluate for intracranial pathology. COMPARISON: HEAD ANGIO 10/16/2018 7:01 PM. TECHNIQUE: Routine axial helical CTA imaging was performed from the aortic arch through the [place] [employer] [place]. Routine axial CT imaging of the head was performed following contrast administration. Reconstructions: Routine multiplanar 3D MIP reconstructions. IV contrast: 100 cc Optiray 320. NASCET Criteria are used for stenosis measurements. In accordance with CT protocol optimization, one or more of the following dose reduction techniques were utilized for this exam: automated exposure control, adjustment of mA and/or KV based on patient size, or use of iterative reconstructive technique. FINDINGS: CT SCAN HEAD: Parenchyma: No intraparenchymal hemorrhage. No evidence of mass, midline shift, or CT findings of acute infarction. Patricia-white differentiation is distinct. No abnormal postcontrast enhancement. Extra-axial Spaces: Normal for age. No subdural or epidural collections identified. Ventricles: Normal in size and position. Sinuses and Orbits: Imaged paranasal sinuses, orbits, and mastoids show no significant abnormality. Bones: No evidence of fracture or calvarial defect. CT ANGIOGRAM EXTRACRANIAL CIRCULATION: The visualized arch is unremarkable. Great vessels are patent and unremarkable. Right Carotid: The common carotid, internal carotid, and external carotid arteries are widely patent. No dissection, significant atherosclerotic plaque, or calcification identified. Left Carotid: The common carotid, internal carotid, and external carotid arteries are widely patent. No dissection, significant atherosclerotic plaque, or calcification identified. Vertebrals: The vertebrobasilar system shows no stenosis, dissection, aneurysm, or significant atherosclerotic disease. CT ANGIOGRAM INTRACRANIAL CIRCULATION: Normal. No stenoses or aneurysms of the visualized vessels. The dural venous sinuses are patent. Other: The visualized bones, soft tissues, and lung apices are unremarkable. IMPRESSION: CT SCAN HEAD: 1. No definite acute infarct seen. If there is clinical concern for acute stroke or symptoms persist an MR brain could be considered to evaluate for small or subtle pathology. ASPECTS: 10 right/10 left. 2. No acute intracranial hemorrhage, mass, hydrocephalus, or midline shift. No abnormal postcontrast enhancement. CT ANGIOGRAM NECK: 1. Normal CTA of the extracranial circulation. No significant atherosclerotic change or stenosis. No dissection. CT ANGIOGRAM HEAD: 1. No large vessel occlusion. 2. No aneurysm. No significant stenosis. RADIA The call report notification system was initiated by Dr. Mukesh Rodriguez at 08:00 PM on 10/16/2018. ADDENDUM: 10/16/18 20:19 The above call report findings were discussed with Timmy Sampson by Dr. Mukesh Rodriguez at 08:19 PM on 10/16/2018.
[2018-10-16] MEDS ORDERED: SODIUM CHLORIDE FLUSH 0.9% 10 ML SYRINGE IVP PRN (20:56)
[2018-10-16 21:11] LABS: BILIRUBIN,URINE NEGATIVE (NEGATIVE); GLUCOSE, URINE (UA) NEGATIVE (NEGATIVE); KETONES,URINE (UA) NEGATIVE (NEGATIVE); LEUKOCYTE ESTERASE, URINE NEGATIVE (NEGATIVE); NITRITE,URINE NEGATIVE (NEGATIVE); OCCULT BLOOD,URINE NEGATIVE (NEGATIVE); PH,URINE 6.5 PH (5.0-7.5); PROTEIN,URINE NEGATIVE (NEGATIVE); UROBILINOGEN,URINE 0.2 (NORMAL) E.U./dL (NORMAL)
[2018-10-16 21:13] LABS: CLARITY,URINE CLEAR (CLEAR)
[2018-10-16] MEDS: SODIUM CHLORIDE 0.9% 1,000 ML IV SCH (22:32)
--- NOTE | 2018-10-16 23:14 | HISTORY & PHYSICAL EXAMINATION ---
Chief Complaint - Chief Complaint Chief Complaint: dizziness, confusion, left eye blurriness, speech difficulty History of Present Illness - Admitted From Ad[facility] From:: [facility] - History Obtained From Records Reviewed: yes History obtained from: patient and spouse Exam Limitations: speech and memory difficulties - History of Present Illness HPI Comment/Other: Patient seen on 10/16/18 at 2200pm Patient is a 48 y/o female who presented to the ED with a range of neurologic complains which included confusion, dizziness, feeling off balance, difficulty speaking, blurry peripheral vision in the left eyes and ? left facial droop.. She has some baseline problems with her speech and dizziness. However, the symptoms were much more amplified. Her vision changes were also new. Onset of her symptoms was on 10/15/18 around 8pm. She came to the ED around 5pm on 10/16/18 because the symptoms persisted. At the time of this exam, she complains of still feeling dizzy and having problems with her speech She denied chest pain, BETH, abd pain, nausea, vomiting, fever or chills. Work up in the ED included CT head w/o contrast and CT Angio Head and Neck which were unremarkable. However as a result of the patient's presentation, she is being admitted for further work up. 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 (and a house mate) Social History Notes: Patient denies tobacco use. Ocassionally drinks and uses marijuana - POLST Patient has POLST: No POLST Status: Full Code Meds/Allgy - Home Medications Home Medications: Ambulatory Orders Medication Instructions Recorded Confirmed Sertraline HCl [Zoloft] 75 mg PO DAILY 12/30/13 06/17/18 - Allergies Allergies/Adverse Reactions: Allergies Allergy/AdvReac Type Severity Reaction Status Date / Time gluten Allergy Unknown Unknown Verified 10/16/18 17:00 Review of Systems - Constitutional Constitutional: denies: Fatigue, Chills, Weakness - Eyes Eyes: reports: Blurred vision - Ears, Nose & Throat Ears, Nose & Throat: denies: Vertigo, Nasal discharge, Sore throat, Hoarseness - Cardiovascular Cariovascular: reports: Lightheadedness. denies: Chest pain, Edema, Syncope, Exertional dyspnea, Decr. exercise tolerance - Respiratory Respiratory: denies: Cough, Orthopnea, SOB at rest - Gastrointestinal Gastrointestinal: reports: Reflux/heartburn. denies: Abdominal pain, Abdominal distention, Constipation, Nausea, Vomiting, Coffee grounds emesis - Genitourinary Genitourinary: denies: Dysuria, Frequency, Urgency, Hematuria - Musculoskeletal Musculoskeletal: reports: Back pain (chronic). denies: Muscle pain, Muscle aches, Stiffness - Integumentary Integumentary: denies: Rash, Pruritis, Lesions, Dryness - Neurological Neurological: reports: Focal weakness (? left sided), Dizziness, Memory problems, Abnormal gait, Slurred speech - Psychiatric Psychiatric: reports: Depression, Anxiety - Endocrine Endocrine: denies: Polyuria, Polydypsia - Hematologic/Lymphatic Hematologic/Lymphatic: denies: Anemia, Bruising, Petechiae Prior Level of Functionality: Independent of activities of daily living. Exam - Vital Signs Vital Signs: Vital Signs x48h Temp Pulse Pulse Resp BP BP Pulse Ox 10/16/18 21:29 36.7 C 77 18 124/81 H 98 10/16/18 21:06 82 23 131/79 H 98 10/16/18 20:15 77 21 109/69 96 10/16/18 19:09 79 15 122/80 99 10/16/18 16:58 36.9 C 96 20 127/88 H 97 - Physical Exam General Appearance: positive: No acute distress, Alert Eyes Bilateral: positive: Normal inspection, PERRL, EOMI. negative: Conjunctivae nml ENT: positive: ENT inspection nml, No signs of dehydration Neck: positive: Nml inspection, No JVD, Trachea midline Respiratory: positive: Chest non-tender, No respiratory distress, Breath sounds nml. negative: Wheezes, Rales, Rhonchi Cardiovascular: positive: Regular rate & rhythm, No murmur Abdomen: positive: Non-tender, No organomegaly, Nml bowel sounds, No distention. negative: Guarding, Rebound Back: positive: Nml inspection Skin: positive: Color nml, No rash, Warm, Dry. negative: Diaphoresis, Pallor Extremities: positive: Non-tender, Full ROM, Nml appearance, No pedal edema Neurologic/Psychiatric: positive: Oriented x3, CN's nml (2-12), Motor nml, Sensation nml, Mood/affect nml. negative: Facial droop, Slurred/abnml speech, Depressed mood/affect Conclusion/Plan - Problem List (1) Vision changes Conclusion/Plan: ?TIA vs CVA CT unremarkable. MRI brain, 2D echo, lipid panel HgA1C pending (2) Depression Conclusion/Plan: On sertraline (3) GERD (gastroesophageal reflux disease) Conclusion/Plan: Famotidine ordered - Lab Results Fish Bones: 10/16/18 17:31 10/16/18 17:31 - Diagnostic Imaging Results Diagnostic Imaging Results: positive: Final report reviewed - EKG Results EKG Interpreted Independently: Yes EKG Comparison: Old EKG unavailable Core Measures - Anticipated LOS I expect patient to be DC'd or transferred within 96 hours.: Yes - DVT/VTE - Prophylaxis VTE/DVT Device ordered at admit?: Yes
[2018-10-16] MEDS: SODIUM CHLORIDE FLUSH 0.9% 10 ML SYRINGE IVP SCH (23:40)
[2018-10-16] MEDS ORDERED: traZODone 50 MG TABLET PO SCH (23:54)
[2018-10-17 05:19] LABS: BASOPHILS # (AUTO) 0.1 10^3/uL (0.0-0.1); BASOPHILS % (AUTO) 0.8 %; EOSINOPHILS # (AUTO) 0.8 10^3/uL (0.0-0.7); EOSINOPHILS % (AUTO) 7.5 %; HGB - HEMOGLOBIN 10.6 g/dL (12.0-16.0); LYMPHOCYTES # (AUTO) 2.5 10^3/uL (1.5-3.5); LYMPHOCYTES % (AUTO) 24.4 %; MEAN CORPUSCULAR HEMOGLOBIN 26.7 pg (27.0-31.0); MEAN CORPUSCULAR HGB CONC 30.5 g/dL (32.0-36.0); MEAN CORPUSCULAR VOLUME 87.7 fL (81.0-99.0); MEAN PLATELET VOLUME 9.4 fL (7.9-10.8); MONOCYTES # (AUTO) 0.7 10^3/uL (0.0-1.0); MONOCYTES % (AUTO) 6.3 %; NEUTROPHILS # (AUTO) 6.2 10^3/uL (1.5-6.6); NEUTROPHILS % (AUTO) 60.1 %; PLT - PLATELET COUNT 221 10^3/uL (130-450); RED BLOOD COUNT 3.97 10^6/uL (4.20-5.40); WHITE BLOOD COUNT 10.3 x10^3/uL (4.8-10.8)
[2018-10-17 05:31] LABS: HB2 TOTAL 10.8 g/dL; HEMOGLOBIN A1C 0.41 g/dL; HEMOGLOBIN A1C % 5.6 % (4.6-6.2)
[2018-10-17 05:35] LABS: BUN - BLOOD UREA NITROGEN 13 mg/dL (6-20); CALCIUM 8.2 mg/dL (8.5-10.3); CARBON DIOXIDE - CO2 22 mmol/L (21-32); CHLORIDE 107 mmol/L (101-111); CHOL/HDL RATIO 5.1 (<4.4); CHOLESTEROL 159 mg/dL; CREATININE 0.8 mg/dL (0.4-1.0); GFR - MDRD 76 (>89); GLUCOSE 95 mg/dL (70-100); HDL CHOLESTEROL 31 mg/dL; LDL CHOLESTEROL,CALCULATED 93 mg/dL; SODIUM 138 mmol/L (135-145); VLDL CHOLESTEROL 35 mg/dL
[2018-10-17] MEDS: SODIUM CHLORIDE 0.9% 1,000 ML IV SCH (08:26)
[2018-10-17] MEDS: SODIUM CHLORIDE FLUSH 0.9% 10 ML SYRINGE IVP SCH ×2 (08:27→15:40)
[2018-10-17] MEDS ORDERED: ASPIRIN EC 81 MG TABLET PO SCH (09:00)
[2018-10-17] MEDS ORDERED: FAMOTIDINE 20 MG TABLET PO SCH (09:00)
[2018-10-17] MEDS ORDERED: POLYETHYLENE GLYCOL 3350 17 GM PACKET PO SCH (09:00)
[2018-10-17] MEDS ORDERED: traMADol 50 MG TABLET PO PRN (09:26)
[2018-10-17] MEDS: ACETAMINOPHEN 325 MG TABLET PO PRN ×2 (09:45→14:36)
[2018-10-17 13:03] LABS: MUDS CUTOFF CONCENTRATIONS CUTOFF CONC BELOW:
[2018-10-17 13:18] LABS: AMPHETAMINE SCREEN,URINE NEGATIVE (NEGATIVE); BENZODIAZEPINES SCREEN, URINE NEGATIVE (NEGATIVE); COCAINE SCREEN URINE NEGATIVE (NEGATIVE); METHAMPHETAMINES SCREEN, URINE NEGATIVE (NEGATIVE); OPIATE SCREEN, URINE NEGATIVE (NEGATIVE); TRICYCLIC ANTIDEPRESSANT,URINE POSITIVE (NEGATIVE)
[2018-10-17 13:19] LABS: METHADONE SCREEN, URINE NEGATIVE (NEGATIVE); OXYCODONE SCREEN, URINE NEGATIVE (NEGATIVE); PROPOXYPHENE SCREEN, URINE NEGATIVE (NEGATIVE)
--- NOTE | 2018-10-17 13:33 | MRI Report ---
Reason: CVA work up: dizzy, confused, blurred vision left Procedure Date: 10/17/2018 Accession Number: [id number] / [id number] Procedure: MRI - Brain W/O CPT Code: FULL RESULT: EXAM: MRI BRAIN WITHOUT CONTRAST EXAM DATE: 10/17/2018 12:35 PM. CLINICAL HISTORY: 48-year-old woman with confusion, dizziness, and blurred vision on the left. Concern for stroke. COMPARISON: None. TECHNIQUE: Multiplanar, multisequence T1-weighted and fluid-sensitive MR sequences of the brain were performed. Sequences optimized for routine evaluation. Other: None. IV Contrast: None. FINDINGS: Parenchyma: No evidence of acute infarct on diffusion weighted sequence. The parenchyma is normal in appearance except for several small foci of nonspecific FLAIR hyperintensity in the deep cerebral white matter, a common finding in this age group. No evidence of prior hemorrhage on susceptibility weighted sequence. Pituitary: Unremarkable. Ventricles and Extra-axial Spaces: Ventricles are symmetric and normal in size for age. Extra-axial spaces are unremarkable. Orbits: Unremarkable. Sinuses: Paranasal sinuses and mastoid air cells are clear. Major Vascular Flow Voids: Intact. IMPRESSION: 1. No acute intracranial abnormality. Specifically, no evidence of acute infarct, hemorrhage, or mass lesion. RADIA
[2018-10-17] MEDS ORDERED: dexAMETHasone 4 MG TABLET PO SCH (14:49)
[2018-10-17] MEDS ORDERED: METOCLOPRAMIDE 10 MG TABLET PO SCH ×2 (15:00→16:00)
--- NOTE | 2018-10-17 15:16 | Discharge Plan ---
Discharge Plan Disposition: Home, Self Care Condition: Good Prescriptions: Acetaminophen [Tylenol] 650 mg PO Q4HR PRN #90 tablet PRN Reason: Pain Or Fever > 38c (100.4f) dexAMETHasone [Decadron] 4 mg PO BIDWM #20 tablet Fluticasone [Flonase] 2 sprays AUGUSTO DAILY #1 bottle Metoclopramide [Reglan] 10 mg PO Q6H #20 tablet Oxymetazoline HCl [Afrin] 15 ml NS BID 3 Days #1 mist Diet: Regular Activity Restrictions: Activity as Tolerated Shower Restrictions: No Weight Bearing: Full Weight Health Concerns: Dental cavities Plan of Treatment: Since all stroke testing is negative, ok to treat symptoms of headaches. Care Goals: Goals of care is to improve symptoms, which is being treated with Reglan and dexamethasone- sent to the pharmacy. Assessment: CVA was ruled out, and patient will be sent home with treatment for her ongoing migraines. Additional Instructions or Follow Up instructions: You were admitted for concerning symptoms of a stroke. Your head MRI shows no brain bleeding, damage or other abnormal findings. Your cardiac echocardiogram shows no reasons for your symptoms including no holes in your heart, no blood clots, and no valve abnormalities. You complained of a headache in the forehead region. You have some sinuses located here, which is the most likely cause. You should avoid inhalants, and take a 3 day (or 6 doses) course of Afrin spray, and Flonase daily nasal spray to prevent further headaches. Your dental health is concerning and we recommend that you make a dental appointment in the near future as they can easily become infected. Also, your nutrition may be compromised since you have discomfort with hot/cold things. Your blood pressure has been on the low side, so I have asked the nurses to check blood pressure and heart rate in different positions to rule out something called orthostatic hypotension. This test was normal, showing that your body does well with position changes. You should drink when you are thirsty and intentionally drink more liquid (about 500-1000 mL per day), which is about one of those hospital mugs. Please see your primary care provider in one week. No Smoking: If you smoke, Please STOP! Call for help. Follow-up with: MALOU MENSAH [Primary Care Provider] -
[2018-10-17 15:55] VITALS: BP 102/69
--- NOTE | 2018-10-17 15:57 | DISCHARGE SUMMARY ---
"Discharge Summary Admit Date: 10/16/18 Discharge Date: 10/17/18 Discharging Provider: RO Harris Primary Care Provider: Cyndee Harrington Code Status: Attempt Resuscitation Condition at Discharge: Good Discharge Disposition: 01 Home, Self Care - DIAGNOSES Admission Diagnoses: Vision changes Depression GERD (gastroesophageal reflux disease) Discharge Diagnoses with Status of Each Condition: Vision changes- Resolved, no evidence of acute infarcts, or other abnormalities on head MRI Depression- chronic, stable GERD (gastroesophageal reflux disease)- chronic, stable TIA- Presenting symptoms resolved, ruled out with imaging Headaches- chronic, improved, continue treatment for acute sinusitis. Use Afrin spray for only 3 days, then daily Flonase. Avoid further exposure to inhalants including marijuana or second hand smoking Vertigo- improved, linked to headaches Acute frontal sinusitis- acute finding on imaging, goes with a frontal headache that she complained of. Chronic dental caries as another potential aggravating factor Hypotension- improved with IV fluids, passed her orthostatic vital sign testing Developmentally delayed- chronic, stable - HPI History of Present Illness: HPI per Dr. Lyons: Monserrat López is a developmentally delayed 48-year old female with a past medical history of dental caries, tobacco and marijuana use, sedentary lifestyle choices, anxiety, and no other history. She sees a psychotherapist at the [facility]. She arrived in the ED via private car with complaints of dizziness, a sensation of the room spinning, frontal headache, left eye blurriness since 10 am this morning, confusion, feeling off balance, difficulty speaking, possibly a left facial droop. Given her baseline cognitive delay, she has some problems with her speech and dizziness at times, however, the symptoms were much more amplified upon initial presentation. Onset of her symptoms was on 10/15/18 around 8pm, according to the admitting provider. She came to the ED around 5pm on 10/16/18 because the symptoms persisted. At the time of her initial exam, she complained of continued dizziness and having problems with her speech. She denied chest pain, shortness of breath, abdominal pain, nausea, vomiting, a new cough, a new rash, fever or chills. Work up in the ED included CT head w/o contrast and CT Angio Head and Neck which were unremarkable. The patient was admitted for observation to undergo a TIA workup. Her is also present and supportive. - CONSULTS | PROCEDURES Consultations: none - HOSPITAL COURSE Hospital Course: The patient had an expected hospital course with having all normal testing for her TIA work up. She continued to complain of a frontal headache that seemed debilitating. The final impression was that her marijuana inhalation and second hand smoke exposure may be contributing to her ongoing sinusitis. After examination, it was found that she had acute frontal sinusitis and was recommended to begin sinus sprays at home and to limit her inhalant exposure. Emphasis was also made about good oral care, because she could likely get an oral abscess that could potentially need draining and/or further interventions. She was medically stable, supported by her and transported home. - ALLERGIES Allergies/Adverse Reactions: Allergies Allergy/AdvReac Type Severity Reaction Status Date / Time gluten Allergy Unknown Unknown Verified 10/16/18 17:00 - MEDICATIONS Home Medications: Ambulatory Orders Medication Instructions Recorded Confirmed Sertraline HCl [Zoloft] 75 mg PO DAILY 12/30/13 10/17/18 Acetaminophen [Tylenol] 650 mg PO Q4HR PRN #90 tablet 10/17/18 Fluticasone [Flonase] 2 sprays AUGUSTO DAILY #1 bottle 10/17/18 Metoclopramide [Reglan] 10 mg PO Q6H #20 tablet 10/17/18 Oxymetazoline HCl [Afrin] 15 ml NS BID 3 Days #1 mist 10/17/18 dexAMETHasone [Decadron] 4 mg PO BIDWM #20 tablet 10/17/18 - PHYSICAL EXAM AT DISCHARGE General Appearance: positive: No acute distress, Alert Eyes Bilateral: positive: PERRL ENT: positive: No signs of dehydration, Pharyngeal erythema, Oral lesions, Other (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 with 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) Neck: positive: Thyroid nml, No JVD, Trachea midline Respiratory: positive: Chest non-tender, No respiratory distress, Breath sounds nml Cardiovascular: positive: Regular rate & rhythm, No murmur, No gallop Peripheral Pulses: positive: 2+ Abdomen: positive: Non-tender, Nml bowel sounds Back: positive: Nml inspection Skin: positive: Color nml, No rash, Warm, Dry Extremities: positive: Non-tender, Full ROM, Nml appearance, No pedal edema Neurologic/Psychiatric: positive: Oriented x3, CN's nml (2-12), Motor nml, Sensation nml, Depressed mood/affect Reflexes: Bicep (R): 3+, Bicep (L): 3+ - LABS Result Diagrams: 10/17/18 04:50 10/17/18 04:50 - DIAGNOSTIC IMAGING Diagnostic Imaging Results: Final report reviewed Diagnostic Imaging Results Comments: EXAM: CT ANGIOGRAM HEAD AND NECK. CT SCAN HEAD WITH CONTRAST. EXAM DATE: 10/16/2018 07:13 PM IMPRESSION: CT SCAN HEAD: 1. No definite acute infarct seen. If there is clinical concern for acute stroke or symptoms persist an MR brain could be considered to evaluate for small or subtle pathology. 2. No acute intracranial hemorrhage, mass, hydrocephalus, or midline shift. No abnormal postcontrast enhancement. CT ANGIOGRAM NECK: 1. Normal CTA of the extracranial circulation. No significant atherosclerotic change or stenosis. No dissection. CT ANGIOGRAM HEAD: 1. No large vessel occlusion. 2. No aneurysm. No significant stenosis. EXAM: CT HEAD EXAM DATE: 10/16/2018 07:13 PM. IMPRESSION: 1. No definite acute infarct seen. If there is clinical concern for acute stroke or if symptoms persist, an MR brain can be considered to evaluate for small or subtle pathology. ASPECTS: 10 right/10 left. 2. No acute intracranial hemorrhage, mass, hydro cephalus or midline shift. EXAM: MRI BRAIN WITHOUT CONTRAST EXAM DATE: 10/17/2018 12:35 PM IMPRESSION: 1. No acute intracranial abnormality. Specifically, no evidence of acute infarct, hemorrhage, or mass lesion. Preliminary Echo results show a normal EF 60-65% with no abnormally shaped ventricles, atrial and no valve abnormalities. - FOLLOW UP Follow Up: Disposition: Home, Self Care Prescriptions: Acetaminophen [Tylenol] 650 mg PO Q4HR PRN #90 tablet PRN Reason: Pain Or Fever > 38c (100.4f) dexAMETHasone [Decadron] 4 mg PO BIDWM #20 tablet Fluticasone [Flonase] 2 sprays AUGUSTO DAILY #1 bottle Metoclopramide [Reglan] 10 mg PO Q6H #20 tablet Oxymetazoline HCl [Afrin] 15 ml NS BID 3 Days #1 mist Health Concerns: Dental cavities Plan of Treatment: Since all stroke testing is negative, ok to treat symptoms of headaches. Care Goals: Goals of care is to improve symptoms, which is being treated with Reglan and dexamethasone- sent to the pharmacy. Assessment: CVA was ruled out, and patient will be sent home with treatment for her ongoing migraines. Additional Instructions or Follow Up instructions: You were admitted for concerning symptoms of a stroke. Your head MRI shows no brain bleeding, damage or other abnormal findings. Your cardiac echocardiogram shows no reasons for your symptoms including no holes in your heart, no blood clots, and no valve abnormalities. You complained of a headache in the forehead region. You have some sinuses lo cated here, which is the most likely cause. You should avoid inhalants, and take a 3 day (or 6 doses) course of Afrin spray, and Flonase daily nasal spray to prevent further headaches. Your dental health is concerning and we recommend that you make a dental appointment in the near future as they can easily become infected. Also, your nutrition may be compromised since you have discomfort with hot/cold things. Your blood pressure has been on the low side, so I have asked the nurses to check blood pressure and heart rate in different positions to rule out something called orthostatic hypotension. This test was normal, showing that your body does well with position changes. You should drink when you are thirsty and intentionally drink more liquid (about 500-1000 mL per day), which is about one of those hospital mugs. Please see your primary care provider in one week. * Please consider a lipid lowering medication, patient refused upon discharge. She was informed of her elevated triglycerides, and HDL being too low. She has been having problems eating with her painful teeth, but seemed to understand the importance of seeking a dentist in the very near future. - TIME SPENT Time Spent in Discharge (Minutes): 50"
== END 2018-10-17 16:45 | disposition home or self-care (01) ==
LOC: ED 16:55 → MS2 20:57
PROVIDERS: ADMIT Internal Medicine; ATTEND Nurse Practitioner
DX: H53.9 Unspecified visual disturbance (principal); K21.9 Gastro-esophageal reflux disease without esophagitis; J01.10 Acute frontal sinusitis, unspecified; R42 Dizziness and giddiness; K02.9 Dental caries, unspecified; I95.9 Hypotension, unspecified; R62.50 Unspecified lack of expected normal physiological development in childhood; F32.9 Major depressive disorder, single episode, unspecified; F41.9 Anxiety disorder, unspecified; E78.1 Pure hyperglyceridemia; F17.200 Nicotine dependence, unspecified, uncomplicated
CPT/HCPCS: 36415; 70450; 70496; 70498; 70551; 80048; 80053; 80061; 81003; 83036; 83690; 83735; 84484; 85025; 85651; 93005; 93306; 96361; 96374; 99283; 99284; A9270; G0378; J8540; Q9967; 80306; 81001; 83721; 87086

== ENCOUNTER 2022-08-01 15:47 | Emergency (ER) | payer OTHER ==
[2022-08-01 16:25] LABS: BASOPHILS # (AUTO) 0.1 10^3/uL (0.0-0.1); EOSINOPHILS # (AUTO) 0.5 10^3/uL (0.0-0.7); HGB - HEMOGLOBIN 14.4 g/dL (12.0-16.0); LYMPHOCYTES # (AUTO) 2.8 10^3/uL (1.5-3.5); LYMPHOCYTES % (AUTO) 25.7 %; MEAN CORPUSCULAR HEMOGLOBIN 30.1 pg (27.0-31.0); MEAN CORPUSCULAR HGB CONC 32.7 g/dL (32.0-36.0); MEAN CORPUSCULAR VOLUME 92.1 fL (81.0-99.0); MEAN PLATELET VOLUME 9.2 fL (7.9-10.8); MONOCYTES # (AUTO) 0.6 10^3/uL (0.0-1.0); MONOCYTES % (AUTO) 5.8 %; NEUTROPHILS # (AUTO) 6.7 10^3/uL (1.5-6.6); PLT - PLATELET COUNT 266 10^3/uL (130-450); RED BLOOD COUNT 4.78 10^6/uL (4.20-5.40); RED CELL DISTRIBUTION WIDTH 13.2 % (12.0-15.0); WHITE BLOOD COUNT 10.8 x10^3/uL (4.8-10.8)
--- NOTE | 2022-08-01 16:36 | ED Physician Documentation ---
History of Present Illness - Stated complaint Stated Complaint: FEMALE /ABD PX - Chief complaint Chief Complaint: Abd Pain - Additonal information Additional information: This is a 52-year-old female with a past medical history significant for postmenopausal bleeding who presents with concerns that she has had increasing "spotting" over the course of the last 5 days. Patient has been followed with her OB for postmenopausal bleeding and is currently on hormone therapy with plans for a surgical procedure later this month in a couple of weeks. She has apparently had increasing spotting, Though described as heavy bleeding to triage, and has required pad change about 5 times a day for the last 5 days. She has also had some lower abdominal cramping. She has not had any fever or chills, no chest pain or difficulty breathing, no nausea, vomiting, diarrhea. She may have had some dysuria, urgency and frequency. She has not attempted any medication or other treatment for this other than the medication that she is prescribed which is a combination contraceptive. Prior to developing the uterine bleeding several months ago, the patient was postmenopausal 6 or 7 years. Review of Systems Constitutional: reports: Reviewed and negative Throat: reports: Reviewed and negative Cardiac: reports: Reviewed and negative Respiratory: reports: Reviewed and negative GI: reports: Abdominal Pain. denies: Abdominal Swelling, Nausea, Vomiting, Constipation, Diarrhea, Hematemesis, Bloody / black stool : reports: Dysuria, Hematuria, Vaginal bleeding Skin: reports: Reviewed and negative Musculoskeletal: reports: Reviewed and negative Neurologic: reports: Other (Dizziness, no syncope or near syncope). denies: Generalized weakness, Focal weakness, Numbness, Difficulty speaking, Near syncope, Syncope, Seizure, Confused, Altered mental status, Unresponsive, Headache, Head injury, LOC PD PAST MEDICAL HISTORY - Past Medical History Cardiovascular: None Respiratory: None Neuro: Migraines, Other Endocrine/Autoimmune: None GI: GERD : Chronic bladder infection Psych: Depression, Anxiety Musculoskeletal: Chronic back pain Derm: None - Past Surgical History Past Surgical History: Yes General: Cholecystectomy Ortho: Carpal Tunnel surgery /[employer]: Tubal ligation - Present Medications Home Medications: Ambulatory Orders Medication Instructions Recorded Confirmed Sertraline HCl [Zoloft] 75 mg PO DAILY 12/30/13 10/17/18 Acetaminophen [Tylenol] 650 mg PO Q4HR PRN #90 tablet 10/17/18 Fluticasone [Flonase] 2 sprays AUGUSTO DAILY #1 bottle 10/17/18 Metoclopramide [Reglan] 10 mg PO Q6H #20 tablet 10/17/18 Oxymetazoline HCl [Afrin] 15 ml NS BID 3 Days #1 mist 10/17/18 dexAMETHasone [Decadron] 4 mg PO BIDWM #20 tablet 10/17/18 Nitrofurantoin [Macrobid] 100 mg PO BID #10 cap 08/01/22 - Allergies Allergies/Adverse Reactions: Allergies Allergy/AdvReac Type Severity Reaction Status Date / Time gluten Allergy Unknown Unknown Verified 08/01/22 15:57 - Social History Does the pt smoke?: No Smoking Status: Never smoker Does the pt drink ETOH?: Yes Does the pt have substance abuse?: No - Immunizations Immunizations are current?: Yes - POLST Patient has POLST: No POLST Status: Full Code Results - Vitals Vitals: Vital Signs - 24 hr 08/01/22 08/01/22 15:52 17:34 Temperature 36.3 C L 36.8 C Heart Rate 84 70 Respiratory 16 16 Rate Blood Pressure 150/85 H 124/54 L O2 Saturation 98 96 Oxygen O2 Source Room air - Labs Labs: Laboratory Tests 08/01/22 08/01/22 08/01/22 16:16 16:16 16:16 WBC 10.8 RBC 4.78 Hgb 14.4 Hct 44.0 MCV 92.1 MCH 30.1 MCHC 32.7 RDW 13.2 Plt Count 266 MPV 9.2 Neut # (Auto) 6.7 H Lymph # (Auto) 2.8 [place] # (Auto) 0.6 Eos # (Auto) 0.5 Baso # (Auto) 0.1 Absolute Nucleated RBC 0.00 Nucleated RBC % 0.0 Sodium 136 Potassium 3.4 L Chloride 107 Carbon Dioxide 22 Anion Gap 7.0 BUN 16 Creatinine 0.7 Estimated GFR (MDRD) 87 L Glucose 112 H Calcium 9.1 Total Bilirubin 0.5 AST 23 ALT 18 Alkaline Phosphatase 80 Total Protein 8.4 H Albumin 4.1 Globulin 4.3 H Albumin/Globulin Ratio 1.0 Lipase 48 Urine Color Urine Clarity Urine pH Ur Specific [place] Urine Protein Urine Glucose (UA) Urine Ketones Urine Occult Blood Urine Nitrite Urine Bilirubin Urine Urobilinogen Ur Leukocyte Esterase Urine RBC Urine WBC Ur Squamous Epith Cells Urine Bacteria Ur Microscopic Review Urine Culture Comments Blood Type B POSITIVE Blood Type Recheck Antibody Screen NEGATIVE 08/01/22 08/01/22 16:46 17:15 WBC RBC Hgb Hct MCV MCH MCHC RDW Plt Count MPV Neut # (Auto) Lymph # (Auto) [place] # (Auto) Eos # (Auto) Baso # (Auto) Absolute Nucleated RBC Nucleated RBC % Sodium Potassium Chloride Carbon Dioxide Anion Gap BUN Creatinine Estimated GFR (MDRD) Glucose Calcium Total Bilirubin AST ALT Alkaline Phosphatase Total Protein Albumin Globulin Albumin/Globulin Ratio Lipase Urine Color LT RED Urine Clarity HAZY Urine pH 5.5 Ur Specific [place] 1.010 Urine Protein TRACE Urine Glucose (UA) NEGATIVE Urine Ketones NEGATIVE Urine Occult Blood LARGE H Urine Nitrite NEGATIVE Urine Bilirubin NEGATIVE Urine Urobilinogen 0.2 (NORMAL) Ur Leukocyte Esterase TRACE H Urine RBC TNTC H Urine WBC 6-10 H Ur Squamous Epith Cells RARE Squamous Urine Bacteria Rare Ur Microscopic Review INDICATED Urine Culture Comments INDICATED Blood Type Blood Type Recheck B POSITIVE Antibody Screen PD Medical Decision Making - ED course Complexity details: reviewed results, re-evaluated patient, considered differential, d/w patient, d/w family ED course: 52-year-old female presents with 5 days of vaginal bleeding. She has been dealing with postmenopausal bleeding for the several months intermittently but felt like it was little bit worse last few days. She is well-appearing on physical exam, hemodynamically stable. We obtained labs which are reassuring including a very stable hemoglobin of 14.4, her remainder of her CBC and CMP are also normal. Urinalysis is suggestive of infection and was sent for culture. We will treat the infection with Macrobid for 5 days and Culture sent. Is the patient has stable hemoglobin hematocrit, and is hemodynamically stable, I did do not think we need to do any changes to her hormone therapy at this time but recommend she follow-up with her OB who has been managing her postmenopausal bleeding and I did advise that she likely needed to have an endometrial biopsy if not already done yet it sounds like that is coming up later this month. I discussed return precautions if new or worsening symptoms including fever, chills, increasing abdominal or flank pain, increasing bleeding greater than 2 pads an hour for 2 consecutive hours. She is advised she can take ibuprofen and Tylenol for discomfort and she was given 30 mg of IV Toradol here. Departure - Departure Disposition: 01 Home, Self Care Clinical Impression: Postmenopausal vaginal bleeding Acute cystitis Qualifiers: Hematuria presence: without hematuria Qualified Code(s): N30.00 - Acute cystitis without hematuria Condition: Good Instructions: ED UTI Cystitis Female Prescriptions: Nitrofurantoin [Macrobid] 100 mg PO BID #10 cap Comments: Your labs are very stable, your hemoglobin and hematocrit which are your blood count, are normal. I suspect your dizziness is more related to a urinary tract infection and we are treating you with antibiotics for that. Please take antibiotics as prescribed. Please continue follow-up with your OB to for ongoing evaluation of your postmenopausal bleeding. At this time, you do not require a blood transfusion and I recommend you continue your hormone therapy. Discharge Date/Time: 08/01/22 17:34
[2022-08-01 16:40] LABS: ALBUMIN 4.1 g/dL (3.2-5.5); BILIRUBIN,TOTAL 0.5 mg/dL (0.2-1.0); CALCIUM 9.1 mg/dL (8.5-10.3); CREATININE 0.7 mg/dL (0.4-1.0); POTASSIUM 3.4 mmol/L (3.5-5.0); TOTAL PROTEIN 8.4 g/dL (6.7-8.2)
[2022-08-01 16:55] LABS: BILIRUBIN,URINE NEGATIVE (NEGATIVE); GLUCOSE, URINE (UA) NEGATIVE (NEGATIVE); KETONES,URINE (UA) NEGATIVE (NEGATIVE); LEUKOCYTE ESTERASE, URINE TRACE (NEGATIVE); NITRITE,URINE NEGATIVE (NEGATIVE); OCCULT BLOOD,URINE LARGE (NEGATIVE); PH,URINE 5.5 PH (5.0-7.5); PROTEIN,URINE TRACE mg/dL (NEGATIVE); UROBILINOGEN,URINE 0.2 (NORMAL) E.U./dL (NORMAL)
[2022-08-01 16:58] LABS: CLARITY,URINE HAZY (CLEAR)
[2022-08-01 17:01] LABS: BACTERIA,URINE Rare /HPF (None Seen); RBC,URINE TNTC /HPF (0-5); SQUAMOUS EPITHELIAL CELL,UR RARE Squamous (<= Few)
[2022-08-01] MEDS ORDERED: KETOROLAC 30 MG/ML VIAL IVP STA (17:18)
[2022-08-01] MEDS ORDERED: ONDANSETRON 4 MG/2 ML VIAL IVP STA (17:18)
[2022-08-01 17:35] VITALS: BP 124/54
== END 2022-08-01 17:34 | disposition home or self-care (01) ==
LOC: ED 15:47
DX: N95.0 Postmenopausal bleeding (principal); N30.00 Acute cystitis without hematuria
CPT/HCPCS: 36415; 80053; 81001; 81003; 83690; 85025; 86850; 86900; 86901; 87086; 96374; 96375; 99284

== ENCOUNTER 2022-08-16 08:00 | Outpatient (CLI) | payer OTHER | END 2022-08-16 23:59 | disposition home or self-care (01) | LOC: LAB.N 08:00 | PROVIDERS: ATTEND Registered Nurse | DX: R31.9 Hematuria, unspecified (principal) | CPT/HCPCS: 87086 ==

== ENCOUNTER 2022-08-30 07:26 | Day surgery (SDC) | payer OTHER ==
[2022-08-30 07:42] LABS: HCG UR QUAL NEGATIVE
[2022-08-30] MEDS ORDERED: LACTATED RINGERS 1,000 ML IV ONE ×2 (07:51→09:47)
[2022-08-30] MEDS ORDERED: LIDOCAINE MPF 2%-EPI 1:200000 20 ML VIAL ONE (08:03)
[2022-08-30] MEDS ORDERED: SILVER NITRATE APPLICATOR TOP ONE ×2 (08:03→09:10)
[2022-08-30] MEDS ORDERED: MIDAZOLAM 2 MG/2 ML VIAL ONE (08:29)
[2022-08-30] MEDS ORDERED: fentaNYL 100 MCG/2 ML VIAL ONE (08:29)
[2022-08-30] MEDS ORDERED: KETOROLAC 30 MG/ML VIAL ONE (08:31)
[2022-08-30] MEDS ORDERED: LIDOCAINE-PF 2% 10 ML AMP SUBQ ONE (08:31)
[2022-08-30] MEDS ORDERED: ONDANSETRON 4 MG/2 ML VIAL ONE (08:31)
[2022-08-30] MEDS ORDERED: DEXAMETHASONE 4 MG/ML VIAL ONE (08:31)
[2022-08-30] MEDS ORDERED: diphenhydrAMINE INJ 50 MG/ML VIAL ONE (08:31)
[2022-08-30] MEDS ORDERED: ePHEDrine 50 MG/ML VIAL IVP ONE (08:50)
--- NOTE | 2022-08-30 08:57 | ANESTHESIA ---
Pre-Anesthesia VS, & Labs - Diagnosis post-menopausal bleeding, recurrent UTI - Procedure LEEP, hysteroscopy, D&C, sterile urine sample Vital Signs: Temp Pulse Resp BP Pulse Ox O2 Flow Rate 36 C L 72 20 122/77 98 08/30/22 07:40 08/30/22 07:40 08/30/22 07:40 08/30/22 07:40 08/30/22 07:40 Height: 5 ft 6 in Weight (kg): 74.4 kg Body Mass Index: 26.4 BMI Classification: Overweight - NPO >8 hours - Is Patient ?: No Home Medications and Allergies Home Medications: Ambulatory Orders Ibuprofen [Motrin] 600 mg PO Q6H PRN 08/30/22 Ibuprofen [Motrin] 600 mg PO Q6H PRN 08/30/22 Allergies/Adverse Reactions: Allergies Allergy/AdvReac Type Severity Reaction Status Date / Time gluten Allergy Unknown Unknown Verified 08/01/22 15:57 Anes History & Medical History - Anesthetic History Anesthesia Complications: reports: No previous complications Family history of Anesthesia Complications: Denies Family history of Malignant Hyperthermia: Denies - Medical History Cardiovascular: reports: None Pulmonary: reports: None Gastrointestinal: reports: GERD Urinary: reports: Chronic bladder infection Neuro: reports: Migraines, Other Musculoskeletal: reports: Chronic back pain Endocrine/Autoimmune: reports: None Blood Disorders: reports: Anemia Skin: reports: None Smoking Status: Current every day smoker Psychosocial: reports: Cannabis (heavy use) - Surgical History General: reports: Cholecystectomy Eyes Ears Nose Throat (EENT): reports: Tonsil/Adenoidectomy Gynecologic: reports: Tubal ligation Orthopedic: reports: Carpal Tunnel surgery Exam General: Alert, Oriented x3, Cooperative Dental: Poor dentition (very poor dentition with all uppers either broken black nubs or missing) Mouth Openin Fingerbreadth Neck Mobility: Normal Mallampati classification: II Thyromental Distance: 4-6 cm Respiratory: Lungs clear Cardiovascular: Regular rate Plan Anesthesia Type: General Consent for Procedure(s) Verified and Reviewed: Yes Code Status: Attempt Resuscitation ASA classification: 3-Severe systemic disease Is this case an emergency?: No
[2022-08-30] MEDS ORDERED: ATROPINE ABBOJECT 1 MG/10 ML SYRINGE IVP PRN (09:04)
[2022-08-30] MEDS ORDERED: NALOXONE 0.4 MG/ML VIAL IVP PRN (09:04)
[2022-08-30] MEDS ORDERED: ONDANSETRON 4 MG/2 ML VIAL IVP PRN (09:04)
[2022-08-30] MEDS ORDERED: ePHEDrine 50 MG/ML VIAL IVP PRN (09:04)
[2022-08-30] MEDS ORDERED: HYDROmorphone 0.5 MG/0.5 ML SYRINGE IVP PRN (09:04)
[2022-08-30] MEDS ORDERED: MORPHINE 2 MG/ML CARPUJECT IVP PRN (09:04)
[2022-08-30] MEDS ORDERED: fentaNYL 100 MCG/2 ML VIAL IVP PRN (09:04)
[2022-08-30] MEDS ORDERED: FERRIC SUBSULFATE 8 ML SOLUTION (FOR OR) TOP ONE (09:09)
[2022-08-30] MEDS ORDERED: LIDOCAINE 1% 50 ML MDV SUBQ ONE ×2 (09:09)
[2022-08-30] MEDS ORDERED: LACTATED RINGERS 1,000 ML IV SCH (10:00)
[2022-08-30] MEDS ORDERED: HYDROmorphone 0.5 MG/0.5 ML SYRINGE ONE (10:21)
--- NOTE | 2022-08-30 10:21 | OPERATIVE REPORT ---
Operative Report - General Procedure Date: 08/30/22 Planned Procedure: Dilation, curettage, hysteroscopy LEEP Pre-Op Diagnosis: Postmenopausal bleeding, NOEL 3, hematuria Procedure Performed: Dilation, curettage, hysteroscopic polypectomy, LEEP Post Op Diagnosis: Postmenopausal bleeding, NOEL 3, hematuria - Procedure Note Primary Surgeon: Jerri Camara DO Anesthesia Provider: Sharifa Baxter CRNA Pathology: Endometrial curettings/polyp, LEEP, urine for UA/culture if indicated Estimated Blood Loss (mL): 20 Urine Output (mL): 50 Indications: Postmenopausal bleeding, NOEL 3, hematuria Findings: Endometrial polyp Complications: None - Other Other Information/Narrative: Patient taken to OR where general anesthesia obtained without difficulty. Time out performed. Placed in dorsal lithotomy position in Avi stirrups. Prepped and draped in sterile fashion. Hoover catheter inserted and urine specimen obtained. Coated Graves speculum placed in vagina. Anterior lip of cervix grasped with single tooth tenaculum. Uterus sounded to 6cm. Cervix dilated to accomodate Myosure hysteroscope. Hysteroscope introduced into cavity and aforementioned findings noted. Myosure Lite device used to resect polyp right posterior wall of uterus. Hysteroscope removed. Curettage obtained. Tenaculum removed. Acetic acid placed on cervix. No new lesions noted. [id number] loop electrode used to obtain sample. Sample removed all of the transformation zone with endocervix. Top hat sample obtained to ensure endocervix sampling. Rollerball electrode then used for hemostasis. Hemostasis noted. Minimal bleeding noted from external os from D&C portion of procedure. Speculum removed. Reviewed procedures and pathology samples. Counts correct x2. Patient transferred to PACU in stable condition.
[2022-08-30 12:03] VITALS: BP 109/80
--- NOTE | 2022-08-30 12:32 | ANESTHESIA POST OP EVALUATION ---
Anesthesia Post Eval - Post Anesthesia Eval Vitals: Last Vital Signs Temp 36.0 C L 08/30/22 12:02 Pulse 66 08/30/22 12:02 Resp 18 08/30/22 12:02 BP 109/80 08/30/22 12:02 Pulse Ox 95 08/30/22 12:02 O2 Flow Rate CV Function Including HR & BP: Stable Pain Control: Satisfactory Nausea & Vomiting: Negative Mental Status: Baseline Respiratory Status: Airway Patent Hydration Status: Satisfactory Anesthesia Complications: None
== END 2022-08-30 07:27 | disposition home or self-care (01) ==
LOC: SDS 07:26
PROVIDERS: ATTEND Obstetrics & Gynecology
PROC: 0UBC7ZX Excision of Cervix, Via Natural or Artificial Opening, Diagnostic (ICD-10-PCS; principal; 2022-08-30 08:30)
PROC: 0UB98ZZ Excision of Uterus, Via Natural or Artificial Opening Endoscopic (ICD-10-PCS; 2022-08-30 08:30)
DX: D06.9 Carcinoma in situ of cervix, unspecified (principal); N85.02 Endometrial intraepithelial neoplasia [EIN]; N72 Inflammatory disease of cervix uteri; R31.9 Hematuria, unspecified; N95.0 Postmenopausal bleeding; D64.9 Anemia, unspecified; F17.200 Nicotine dependence, unspecified, uncomplicated
CPT/HCPCS: 57522; 58558; 81025; J1170; J1200; J7120

== ENCOUNTER 2022-10-14 16:46 | Outpatient (CLI) | payer OTHER ==
--- NOTE | 2022-10-15 03:18 | Ultrasound Report ---
PROCEDURE: Pelvic w/Transvaginal INDICATIONS: ENDOMETRIAL HYPERPLASIA TECHNIQUE: Real-time scanning was performed of the pelvic organs, with image documentation. Additional endovagi nal scanning was necessary due to incomplete visualization of the adnexal and endometrial structures by transabdominal scanning. COMPARISON: None. FINDINGS: Uterus: Uterus is variable and measures 5.6 x 3 x 4.1 cm. Endometrium measures up to 0.5 cm without increased internal vascularity. There is a hypoechoic oval focus within the myometrium measuring up t o 0.7 cm which may represent a small fibroid or a nonspecific cyst. Ovaries: The right ovary measures 1.2 x 0.6 x 0.9 cm, with a calculated ovarian volume of 0.4 cc. T he left ovary measures 0.9 x 0.9 x 0.9 cm, with a calculated ovarian volume of 0.4 cc. The ovaries h ave a normal sonographic appearance. Less than 12 follicles can be seen in each ovary. No adnexal m asses are seen. No cystic lesions measuring greater than 3 cm. Other: No pathologic free abdominal or pelvic fluid. IMPRESSION: 1. Small hypoechoic fibroid or cyst within the uterine myometrium. Reviewed by: Jesse Perez MD on 10/15/2022 3:17 AM PDT Approved by: Jesse Perez MD on 10/15/2022 3:17 AM PDT Station ID: [id number]
== END 2022-10-14 16:47 | disposition home or self-care (01) ==
LOC: DI 16:46
PROVIDERS: ATTEND Obstetrics & Gynecology
DX: N85.02 Endometrial intraepithelial neoplasia [EIN] (principal); N95.0 Postmenopausal bleeding

== ENCOUNTER 2022-12-23 08:00 | Outpatient (CLI) | payer OTHER | END 2022-12-23 23:59 | disposition home or self-care (01) | LOC: LAB.N 08:00 | PROVIDERS: ATTEND Registered Nurse | DX: R31.9 Hematuria, unspecified (principal) | CPT/HCPCS: 87086 ==

== ENCOUNTER 2023-08-12 09:15 | Emergency (ER) | payer OTHER ==
[2023-08-12 10:00] LABS: BILIRUBIN,URINE NEGATIVE (NEGATIVE); GLUCOSE, URINE (UA) NEGATIVE (NEGATIVE); KETONES,URINE (UA) NEGATIVE (NEGATIVE); LEUKOCYTE ESTERASE, URINE SMALL (NEGATIVE); NITRITE,URINE NEGATIVE (NEGATIVE); OCCULT BLOOD,URINE NEGATIVE (NEGATIVE); PH,URINE 6.5 PH (5.0-7.5); PROTEIN,URINE NEGATIVE (NEGATIVE); UROBILINOGEN,URINE 0.2 (NORMAL) E.U./dL (NORMAL)
--- NOTE | 2023-08-12 10:01 | ED Physician Documentation ---
PD HPI ABD PAIN - Stated complaint Stated Complaint: LWR ABD PX,NAUSEA - Chief complaint Chief Complaint: Abd Pain - History obtained from History obtained from: Patient, Family - History of Present Illness Timing - onset: How many days ago (5) Timing - duration: Days (5) Timing - details: Gradual onset, Still present, Waxing and waning Pain level max: 9 Pain level now: 6 Quality: Cramping, Aching, Pain Location: Periumbilical, Other (lower abdomen mostly) Radiation: Lower back Improved by: No: Laying still Worsened by: Palpation. No: Moving Associated symptoms: Nausea, Loss of appetite. No: Fever, Vomiting, Diarrhea, Constipation (has had BMs but small and "pellets" per spouse.), Dysuria Similar symptoms before: Has not had sx before Recently seen: Clinic (had EGD 2 weeks ago with Dx esophagitis. Rx changed from pantoprazole to omeprazole 1 1/2 weeks ago. 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 HEENT: Tonsil/Adenoidectomy - Present Medications Home Medications: Ambulatory Orders Medication Instructions Recorded Confirmed Ibuprofen [Motrin] 600 mg PO Q6H PRN 08/30/22 08/30/22 Docusate Sodium 100Mg Capsule 100 mg PO DAILY #20 cap 08/12/23 [Colace 100Mg Capsule] HYDROcod/ACETAM 5/325 [[address] 5/325] 1 ea PO Q6H PRN #12 tablet 08/12/23 Ondansetron Odt [Zofran] 4 mg TL Q6H PRN #15 tablet 08/12/23 Pantoprazole [Protonix] 40 mg PO DAILY 30 Days #30 tablet 08/12/23 cephALEXin [Keflex] 500 mg PO TID #15 cap 08/12/23 polyethylene glycoL 3350(BULK) 17 gm PO DAILY PRN #1 each 08/12/23 [Miralax] - Allergies Allergies/Adverse Reactions: Allergies Allergy/AdvReac Type Severity Reaction Status Date / Time gluten Allergy Unknown Unknown Verified 08/12/23 09:23 - Social History Does the pt smoke?: No Smoking Status: Never smoker Does the pt drink ETOH?: Yes Does the pt have substance abuse?: No - Immunizations Immunizations are current?: Yes - POLST Patient has POLST: No POLST Status: Full Code Results - Vitals Vitals: Oxygen O2 Source Room air - Labs Labs: Laboratory Tests 08/12/23 08/12/23 08/12/23 09:53 10:04 10:04 WBC 10.1 RBC 4.83 Hgb 14.5 Hct 44.5 MCV 92.1 MCH 30.0 MCHC 32.6 RDW 13.6 Plt Count 241 MPV 9.4 Neut # (Auto) 5.0 Lymph # (Auto) 3.2 [place] # (Auto) 0.7 Eos # (Auto) 1.1 H Baso # (Auto) 0.1 Absolute Nucleated RBC 0.00 Nucleated RBC % 0.0 Sodium 140 Potassium 3.6 Chloride 105 Carbon Dioxide 26 Anion Gap 9.0 BUN 14 Creatinine 0.7 Estimated GFR (MDRD) 87 L Glucose 94 Calcium 9.7 Total Bilirubin 0.8 AST 18 ALT 14 Alkaline Phosphatase 67 Total Protein 7.6 Albumin 4.4 Globulin 3.2 Albumin/Globulin Ratio 1.4 Lipase 29 Urine Color YELLOW Urine Clarity CLEAR Urine pH 6.5 Ur Specific [place] 1.020 Urine Protein NEGATIVE Urine Glucose (UA) NEGATIVE Urine Ketones NEGATIVE Urine Occult Blood NEGATIVE Urine Nitrite NEGATIVE Urine Bilirubin NEGATIVE Urine Urobilinogen 0.2 (NORMAL) Ur Leukocyte Esterase SMALL H Urine RBC 0-5 Urine WBC 0-3 Ur Squamous Epith Cells MANY Squamous H Urine Bacteria Few Urine Mucus Moderate Strands Ur Microscopic Review INDICATED Urine Culture Comments NOT INDICATED PD Medical Decision Making - ED course Complexity details: reviewed results (abd/pelvic CT no acute process. Moderately prominent colonic stool. Has dysuria with questionably positive UA. can treat short term abx as she states feels like UTI. ), re-evaluated patient (CT without acute defining process. Moderate colonic stool noted. Could be part of symptoms, though may be indicative of the IBS like symptoms from new omeprazole med. Either way, will change PPI back to Pantoprazole, add stooll sfotener. She is sensitive to NSAIDs and Tylenol. ), considered differential (onset of cramping pains with firmer stools 5 days ago with increasing severity, intermittent. Had change of med from pantoprazole to omeprazole 1 1/2 weeks ago. Consider side effect of this. CT did not show other acute process. dysuria but normal UA. Labs normal re: lytes, lfts, lipase, wbc. ), d/w patient Departure - Departure Disposition: 01 Home, Self Care Clinical Impression: Lower abdominal pain, Dysuria, Chronic reflux esophagitis, Medication side effect Condition: Stable Record reviewed to determine appropriate education?: Yes Prescriptions: Docusate Sodium 100Mg Capsule [Colace 100Mg Capsule] 100 mg PO DAILY #20 cap cephALEXin [Keflex] 500 mg PO TID #15 cap polyethylene glycoL 3350(BULK) [Miralax] 17 gm PO DAILY PRN #1 each PRN Reason: Constipation HYDROcod/ACETAM 5/325 [[address] 5/325] 1 ea PO Q6H PRN #12 tablet PRN Reason: Pain Pantoprazole [Protonix] 40 mg PO DAILY 30 Days #30 tablet Ondansetron Odt [Zofran] 4 mg TL Q6H PRN #15 tablet PRN Reason: Nausea / Vomiting Comments: Your urine sample does not show an obvious infection though there are few white cells to it. However your symptoms are suggestive of a bladder infection. We can go with an antibiotic for several days to treat that just in case. However it does not look significant enough to account for the rest of your abdominal pain and cramps and tenderness. You had switched to omeprazole recently and the symptoms can be a side effect of that sometimes. Given not another obvious cause for your symptoms, I would suggest stopping the omeprazole and switching back to pantoprazole. In the short-term the CT scan did comment on a moderate stool load. It does not look likely impacted enough to again account for all your symptoms but it would make sense to decrease the irritation and stretch on the colon even if the main causes and irritable bowel from the omeprazole. I would suggest continuing with some fiber like you are Metamucil. Stay well- hydrated. I would add docusate stool softener daily over the next week or 2. In the short-term I would also suggest MiraLAX dosing 2-3 times daily for the next day or 2 to soften up the stool more and then once or twice daily for a few days after that. Tylenol every 4-6 hours if needed for pains. Add hydrocodone every 6-8 hours if needed for worse pain just infrequently if needed. I sent your prescriptions to your preferred pharmacy. 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 Return if needed for worse pain or other problems. I am prescribing a short course of narcotic pain medication for you. These are potentially dangerous and addictive medications that should be used carefully. These medications may constipate you. Take an [id number] stool softener such as docusate twice daily with plenty of water while taking these medications. If you go 24 hours without a bowel movement, take [id number] MiraLAX, per package instructions. Do not drink or drive while taking these medications. If you received narcotic or sedating medications while in the emergency department do not drive for 24 hours. Store this medication in a safe, secure place and out of reach of children. It is a violation of federal law to give or sell this medication to another person or to use in a manner other than prescribed. The ED will not refill narcotic prescriptions, including prescriptions lost or stolen. You can dispose of unwanted medications at the [facility]'s office or at several pharmacies such as [facility]. Forms: PCP List Discharge Date/Time: 08/12/23 14:14
[2023-08-12 10:08] LABS: CLARITY,URINE CLEAR (CLEAR)
[2023-08-12 10:09] LABS: BACTERIA,URINE Few /HPF (None Seen); MUCUS,URINE Moderate Strands; RBC,URINE 0-5 /HPF (0-5); SQUAMOUS EPITHELIAL CELL,UR MANY Squamous (<= Few); WBC,URINE 0-3 /HPF (0-5)
[2023-08-12 10:09] LABS: BASOPHILS # (AUTO) 0.1 10^3/uL (0.0-0.1); BASOPHILS % (AUTO) 1.2 %; EOSINOPHILS # (AUTO) 1.1 10^3/uL (0.0-0.7); EOSINOPHILS % (AUTO) 10.5 %; HCT - HEMATOCRIT 44.5 % (37.0-47.0); HGB - HEMOGLOBIN 14.5 g/dL (12.0-16.0); LYMPHOCYTES # (AUTO) 3.2 10^3/uL (1.5-3.5); LYMPHOCYTES % (AUTO) 31.3 %; MEAN CORPUSCULAR HGB CONC 32.6 g/dL (32.0-36.0); MEAN CORPUSCULAR VOLUME 92.1 fL (81.0-99.0); MEAN PLATELET VOLUME 9.4 fL (7.9-10.8); MONOCYTES # (AUTO) 0.7 10^3/uL (0.0-1.0); MONOCYTES % (AUTO) 7.1 %; NEUTROPHILS % (AUTO) 49.5 %; PLT - PLATELET COUNT 241 10^3/uL (130-450); RED BLOOD COUNT 4.83 10^6/uL (4.20-5.40); RED CELL DISTRIBUTION WIDTH 13.6 % (12.0-15.0); WHITE BLOOD COUNT 10.1 x10^3/uL (4.8-10.8)
[2023-08-12 10:24] LABS: ALBUMIN 4.4 g/dL (3.2-5.5); ALBUMIN/GLOBULIN RATIO 1.4 (1.0-2.2); BILIRUBIN,TOTAL 0.8 mg/dL (0.2-1.0); CALCIUM 9.7 mg/dL (8.5-10.3); CREATININE 0.7 mg/dL (0.6-1.3); POTASSIUM 3.6 mmol/L (3.5-4.5); TOTAL PROTEIN 7.6 g/dL (6.4-8.9)
[2023-08-12] MEDS ORDERED: iohexoL-300 100 ML VIAL ONE (10:53)
[2023-08-12] MEDS: ONDANSETRON 4 MG/2 ML VIAL IVP STA (11:20)
[2023-08-12] MEDS: SODIUM CHLORIDE 0.9% 1,000 ML IV STA ×2 (11:21→13:08)
[2023-08-12] MEDS: PANTOPRAZOLE 40 MG VIAL IVP STA (11:21)
[2023-08-12] MEDS: iohexoL-300 100 ML VIAL IVP ONE (11:24)
[2023-08-12] MEDS: HYDROmorphone 1 MG/ML CARPUJECT IVP STA (11:25)
--- NOTE | 2023-08-12 11:34 | CT Report ---
PROCEDURE: Abdomen/Pelvis W INDICATIONS: mid to lower abd pain 5 days CONTRAST: 100ml omni 300 TECHNIQUE: After the administration of intravenous contrast, a CT scan of the abdomen and pelvis was performed. Images were recorded and evaluated at appropriate window settings. Reformats: coronal and sagittal. F or radiation dose reduction, the following was used: automated exposure control, adjustment of mA and /or kV according to patient size. COMPARISON: CT abdomen pelvis 06/17/2018. FINDINGS: Image quality: Diagnostic. Lower chest: Unremarkable. Liver: No solid mass. Liver measures 17.2 cm. Gallbladder and biliary tree: Removed. Spleen: No splenomegaly. Pancreas: No pancreatic ductal dilation. Adrenals: No adrenal nodule. Kidneys and ureters: No hydronephrosis. No renal cystic lesion which requires follow up. No solid mas s. Stomach, bowel and peritoneum: No bowel distension. No pathologic free fluid. Moderately prominent co lonic stool without obstruction. Lymph nodes: No central or retroperitoneal adenopathy. Vessels: No infrarenal aortic aneurysm. PELVIS Reproductive organs: Unremarkable. Bladder: No abnormal wall thickening, accounting for underdistention. Pelvic lymph nodes: No pelvic adenopathy by size criteria. Bones: No aggressive osseous abnormality. Other: No significant ventral or inguinal hernia. IMPRESSION: Moderately prominent colonic stool without obstruction. Reviewed by: Sandra Rosales MD on 08/12/2023 11:32 AM PDT Approved by: Sandra Rosales MD on 08/12/2023 11:32 AM PDT Station ID: [id number]
[2023-08-12] MEDS: DROPERIDOL 5 MG/2 ML VIAL IVP STA (13:07)
[2023-08-12] MEDS: MAG HYDROX/AL HYDROX/SIMETH 30 ML UDC PO STA (13:08)
[2023-08-12] MEDS: cefTRIAXone 1 GM VIAL IVP STA (14:01)
[2023-08-12 14:15] VITALS: BP 110/68; O2SAT 94
== END 2023-08-12 14:14 | disposition home or self-care (01) ==
LOC: ED 09:15
DX: R10.33 Periumbilical pain (principal); M54.50 Low back pain, unspecified; T47.1X5A Adverse effect of other antacids and anti-gastric-secretion drugs, initial encounter; R30.0 Dysuria; K21.9 Gastro-esophageal reflux disease without esophagitis
CPT/HCPCS: 36415; 74177; 80053; 81001; 83690; 85025; 96374; 96375; 99283; 99285; A9270; J1170; Q9967; 81003; 87086